=== PATIENT | male | born 1970 | race Caucasian/White ===

== ENCOUNTER 2019-11-08 12:48 | Emergency (ER) | payer MEDICARE ==
[~2019-11-08] VITALS: Ht 180.3 cm; Wt 91.6 kg
--- NOTE | 2019-11-08 12:55 | NUR ---
pt placed into esprit ventilator via trach size #8 portex with settings below per EMT transporter: AC 20 VT 550 FIO2 40% PEEP +5 BREATH SOUNDS COARSE RHONCHI BILATERAL. VENT IS PLUGGED INTO RED OUTLET WITH ALARMS ON AND FUNCTIONING. JAMESU BAG @ BEDSIDE. Addendum: 11/08/19 at 1316 by LUCÍA HOFFMAN RT Amended: Links added.
[2019-11-08] MEDS ORDERED: PIPERACILLIN /TAZOBACTAM 3.375 G in IV D5W 50 ML IV ONE (13:00)
[2019-11-08] MEDS ORDERED: VANCOMYCIN 1 GM in IV D5W 250 ML IV ONE (13:00)
[2019-11-08] MEDS ORDERED: ACETAMINOPHEN 650 MG/SUPP.RECT RC ONE ×2 (13:00→13:08)
[2019-11-08] MEDS ORDERED: IV NS 0.9% 1,000 ML BAG IV ONE (13:00)
[2019-11-08] MEDS ORDERED: PIPERACILLIN /TAZOBACTAM 3.375 G VIAL IV ONE (13:08)
[2019-11-08] MEDS ORDERED: VANCOMYCIN 1 GM VIAL ONE (13:08)
--- NOTE | 2019-11-08 13:15 | NUR ---
BIBPA FROM SNF TO ER BED 5. AAOX1, NON VERBAL ABLE TO COMMUNICATE BY GESTURES. VENT AND TRACH DEPENDENT, NOT IN RESP DISTRESS. BED BOUOND. BROUGHT IN FOR TACHYCARDIA, REPORTED AIN 130s. AND TEMP OF 103.6. TRACH SITE PRESENT WITH PORTEX 8. GT NOTED ON ABDOMEN. MD WAS AT THE BEDSIDE FOR EVAL. ORDERS RECEIVED NOTED AND CARREID OUT. IV LINE ESTABLISHED ON RFA 18G, BLOOD DRAWN AND GIVEN TO LAN ENGINEER AT BEDSIDE. RT AT BEDSIDE FOR VENT SET UP
--- NOTE | 2019-11-08 13:18 | NUR ---
VENT SETTING: AC20, VT550, O2 40%, +5 PEEP
[2019-11-08 13:19] LABS: BASOPHILS # (AUTO) 0.1 /CMM (0.0-0.2); BASOPHILS % (AUTO) 0.4 % (0.0-2.0); HEMATOCRIT 42 % (39-51); HEMOGLOBIN 12.9 g/dL (13.5-17.5); LYMPHOCYTES # (AUTO) 1.3 /CMM (0.8-4.8); LYMPHOCYTES % (AUTO) 7.4 % (20.0-44.0); MEAN CORPUSCULAR HGB CONC 31 g/dl (31.0-36.0); MEAN CORPUSCULAR VOLUME 90 fL (80-96); MONOCYTES # (AUTO) 1.2 /CMM (0.1-1.30); MONOCYTES % (AUTO) 6.5 % (2.0-12.0); NEUTROPHILS # (AUTO) 15.3 /CMM (1.8-8.9); NEUTROPHILS % (AUTO) 85.7 % (43.0-81.0); PLATELET COUNT (AUTO) 258 /CMM (150-450); RED BLOOD CELL COUNT(AUTO) 4.63 MIL/uL (4.5-6.0); WHITE BLOOD COUNT (AUTO) 17.8 K/uL (4.3-11.0)
[2019-11-08 13:25] LABS: CALCIUM, SERUM 8.6 mg/dL (8.5-10.1); CARBON DIOXIDE 32 mmol/L (21-32); CHLORIDE 112 mmol/L (98-107); GLUCOSE 208 mg/dL (74-106); POTASSIUM 3.7 mmol/L (3.5-5.1); SODIUM SERUM 153 mmol/L (136-145); UREA NITROGEN, BLOOD 41 mg/dL (7-18)
--- NOTE | 2019-11-08 13:25 | NUR ---
URINE COLLECTED VIA IN AND OUT CATH WITH STRICT STERILE TECHNIQUE. URINE SENT TO LAB
[2019-11-08] MEDS ORDERED: PHEN180S18 MM (13:29)
[2019-11-08] MEDS ORDERED: NA P133E RC (13:29)
[2019-11-08] MEDS ORDERED: IPRA12.9 IH ×2 (13:29)
[2019-11-08] MEDS ORDERED: ONDA-97 GT (13:29)
[2019-11-08] MEDS ORDERED: ACET-2605 GT (13:29)
[2019-11-08] MEDS ORDERED: MULT-439 GT (13:29)
[2019-11-08] MEDS ORDERED: OXYC5CAP18 GT (13:29)
[2019-11-08] MEDS ORDERED: MAG-55 GT (13:29)
[2019-11-08] MEDS ORDERED: ASPI-1169 GT (13:29)
[2019-11-08] MEDS ORDERED: BROM2.5T15 GT (13:29)
[2019-11-08] MEDS ORDERED: CHLO473M3 MM (13:29)
[2019-11-08] MEDS ORDERED: HEPA1DIS12 SUBCUT (13:29)
[2019-11-08] MEDS ORDERED: BISA10SU11 RC (13:29)
[2019-11-08] MEDS ORDERED: MAGN400O6 GT (13:29)
[2019-11-08] MEDS ORDERED: QUET25TA GT (13:29)
[2019-11-08] MEDS ORDERED: CRAN3875 GT (13:29)
[2019-11-08] MEDS ORDERED: ACET-868 GT (13:29)
[2019-11-08] MEDS ORDERED: LACT20SO4 GT (13:29)
[2019-11-08] MEDS ORDERED: ASCO500C16 GT (13:29)
[2019-11-08] MEDS ORDERED: LEVE100S GT (13:29)
[2019-11-08] MEDS ORDERED: AMIN887L GT (13:29)
[2019-11-08] MEDS ORDERED: LANS30CA56 GT (13:29)
[2019-11-08] MEDS ORDERED: METF500S7 GT (13:29)
[2019-11-08] MEDS ORDERED: NICO-676 TD (13:29)
[2019-11-08] MEDS ORDERED: SENN-18 GT (13:29)
[2019-11-08] MEDS ORDERED: ATOR80TA GT (13:29)
[2019-11-08] MEDS ORDERED: INSU100V28 IJ (13:29)
[2019-11-08] MEDS ORDERED: DOCU-141 GT (13:29)
[2019-11-08 13:31] LABS: ALANINE AMINOTRANSFERASE 53 U/L (12-78); ALBUMIN 2.8 g/dL (3.4-5.0); ALKALINE PHOSPHATASE 89 U/L (46-116); ASPARTATE AMINOTRANSFERASE 53 U/L (15-37); BILIRUBIN,DIRECT 0.2 mg/dL (0.0-0.2); BILIRUBIN,TOTAL 0.6 mg/dL (0.2-1.0); TOTAL PROTEIN, SERUM 8.2 g/dL (6.4-8.2)
[2019-11-08 13:50] LABS: BILIRUBIN,URINE Negative (NEGATIVE); BLOOD, URINE Large Ery/uL (NEGATIVE); COLOR,URINE Yellow (YELLOW); KETONES,URINE Negative (NEGATIVE); LEUKOCYTE ESTERASE ,URINE Negative (NEGATIVE); NITRITE, URINE Negative (NEGATIVE); PH,URINE 5.5 (5.0-8.0); PROTEIN,URINE >=300 mg/dl (NEGATIVE); UGLUCOSE Negative (NEGATIVE)
[2019-11-08 13:52] LABS: APPEARANCE,URINE SLIGHTLY HAZY (CLEAR)
[2019-11-08 14:05] LABS: BACTERIA,URINE Few /HPF (None Seen); SQUAMOUS EPITHELIAL CELL,UR Few /HPF (None Seen); URINE AMORPHOUS URATE Moderate /HPF (None Seen); WBC,URINE 0-1 /HPF (0-3)
--- NOTE | 2019-11-08 14:08 | NUR ---
CALLED NURSING SUPP FOR TELE BED.
--- NOTE | 2019-11-08 14:10 | NUR ---
MOVE SHEET SUBMITTED TO ADMITTING AND CALLED FOR TELE BED.
--- NOTE | 2019-11-08 14:41 | NUR ---
SPOKE WITH GENE, LOCOMOTIVE ELECTRICIAN FOR CLINICAL INFORMATION. WILL CALL BACK FOR ADMISSION APPROVAL
[2019-11-08] MEDS ORDERED: IOHEXOL-300 100 ML VIAL IV ONE (14:45)
[2019-11-08] MEDS ORDERED: CT SWABBABLE VALVE TRANS SET 1 EA INFUS.SET MC ONE (14:46)
[2019-11-08] MEDS ORDERED: IV NS 0.9% 250 ML IV ONE (14:46)
--- NOTE | 2019-11-08 15:09 | NUR ---
BACK FROM CT WITH RT AND RN AT BEDSIDE
--- NOTE | 2019-11-08 15:24 | NUR ---
PT GOING TO 104
--- NOTE | 2019-11-08 15:28 | NUR ---
SPOKE WITH DR. MATTHEW MD WANTS TO HAVE [facility] PAT[facility]. GIVEN 2 HOURS TO FACILITATE TRANSPFER TO ANOTHER HOPSPITAL
[2019-11-08] MEDS ORDERED: IV NS 0.9% 1,000 ML IV PRN (15:50)
[2019-11-08] MEDS ORDERED: MAGNESIUM HYDROXIDE 30 ML UDC GT PRN (16:00)
[2019-11-08] MEDS ORDERED: BISACODYL SUPP (10 MG) 10 MG/SUPP.RECT SUPP.RECT RC PRN (16:00)
[2019-11-08] MEDS ORDERED: Z GUARD REMEDY 2 OZ OINT TP PRN (16:00)
[2019-11-08] MEDS ORDERED: ONDANSETRON HCL/PF 4 MG/2 ML VIAL IVP PRN (16:00)
[2019-11-08] MEDS ORDERED: ACETAMINOPHEN 325 MG TABLET PO PRN (16:00)
[2019-11-08] MEDS ORDERED: oxyCODONE IR immediate release 5 MG GT PRN (16:00)
[2019-11-08] MEDS ORDERED: PHENOL/SODIUM PHENOLATE 1 BOTTLE MM PRN (16:00)
[2019-11-08] MEDS ORDERED: NA PHOS,M-B/NA PHOS,DI-BA 1 EA ENEMA RC PRN (16:00)
[2019-11-08] MEDS ORDERED: KETOROLAC TROMETHAMINE INJ 30 MG/ML VIAL IV ONE (16:30)
[2019-11-08] MEDS ORDERED: ACETAMINOPHEN 650 MG/20.3 ML UDC GT PRN (16:30)
--- NOTE | 2019-11-08 16:30 | NUR ---
made aware that temp is noted at 102.7, order received to give Toradol 15mg iv x 1.
[2019-11-08] MEDS ORDERED: KETOROLAC TROMETHAMINE 15 MG/ML VIAL ONE (16:31)
[2019-11-08] MEDS ORDERED: BROMOCRIPTINE MESYLATE (2.5MG) 2.5 MG TABLET GT SCH (17:00)
[2019-11-08] MEDS ORDERED: CHLORHEXIDINE GLUCONATE 15 ML UDC MM SCH (17:00)
[2019-11-08] MEDS ORDERED: DOCUSATE SODIUM 100 MG CAPSULE PO SCH (17:00)
[2019-11-08] MEDS ORDERED: LEVETIRACETAM SOL (5 ML) 100 MG/ML UDC GT SCH (17:00)
--- NOTE | 2019-11-08 17:36 | NUR ---
ADMITTED AT [facility] GOING TO 215.A REPORT TO [phone]. LESLIE
--- NOTE | 2019-11-08 17:45 | NUR ---
REPORT GIVEN TO ESSIE NELSON FOR MYRANDA AT THE [facility]
--- NOTE | 2019-11-08 17:49 | NUR ---
PT GOING TO [facility] ROOM 215-A. REPORT TO [phone] LESLIE. TRANSPORT WILL BE HERE AT 1830.
[2019-11-08 17:58] VITALS: BP 107/58
--- NOTE | 2019-11-08 18:30 | NUR ---
Yanely stuart in [facility] - 11/08/19 at 1847 by MAYITO REPORT GIVEN TO ESSIE NELSON AT THE [facility]
--- NOTE | 2019-11-08 18:51 | NUR ---
[facility] AT BEDSIDE FOR PT TRANSPORTED. REPORT GIVEN TO ESSIE ZENG (AMBULANCE TRANSPORT NURSE).
--- NOTE | 2019-11-08 19:13 | NUR ---
PT LEFT ON GURNEY WITH 2 AMBULANCE STAFF AND RN AT BEDSIDE [facility] NAD NOTED.
[2019-11-08] MEDS ORDERED: HEPARIN SODIUM, PORCINE 5000 UNITS/1 ML VIAL SQ SCH (21:00)
[2019-11-08] MEDS ORDERED: METFORMIN 500 MG TABLET PO SCH (21:00)
[2019-11-08] MEDS ORDERED: SENNOSIDES 8.6 MG TABLET GT SCH (22:00)
[2019-11-08] MEDS ORDERED: QUETIAPINE FUMARATE 25 MG TABLET GT SCH (22:00)
[2019-11-08] MEDS ORDERED: ATORVASTATIN 40 MG TABLET GT SCH (22:00)
[2019-11-09] MEDS ORDERED: PANTOPRAZOLE 40 MG TABLET.DR PO SCH (07:30)
[2019-11-09] MEDS ORDERED: PANTOPRAZOLE 40 MG/PACK PACK GT SCH (07:30)
[2019-11-09] MEDS ORDERED: NICOTINE PATCH (14MG) 14 MG PATCH.TD24 TD SCH (09:00)
[2019-11-09] MEDS ORDERED: ASPIRIN 81 MG TAB.CHEW GT SCH (09:00)
== END 2019-11-08 19:16 | disposition short-term general hospital (02) ==
LOC: ER 12:51
DX: A41.9 Sepsis, unspecified organism (principal); I21.A1 Myocardial infarction type 2; E87.1 Hypo-osmolality and hyponatremia; J96.10 Chronic respiratory failure, unspecified whether with hypoxia or hypercapnia; Z93.0 Tracheostomy status; G20 Parkinson's disease; Z99.11 Dependence on respirator [ventilator] status; G40.909 Epilepsy, unspecified, not intractable, without status epilepticus; E11.42 Type 2 diabetes mellitus with diabetic polyneuropathy; J44.9 Chronic obstructive pulmonary disease, unspecified; I69.959 Hemiplegia and hemiparesis following unspecified cerebrovascular disease affecting unspecified side; R40.2432 Glasgow coma scale score 3-8, at arrival to emergency department; I11.0 Hypertensive heart disease with heart failure; I50.9 Heart failure, unspecified; Z86.711 Personal history of pulmonary embolism; E78.5 Hyperlipidemia, unspecified; K21.9 Gastro-esophageal reflux disease without esophagitis; D64.9 Anemia, unspecified; R79.89 Other specified abnormal findings of blood chemistry; Z93.1 Gastrostomy status; R13.10 Dysphagia, unspecified; Z79.82 Long term (current) use of aspirin; Z79.84 Long term (current) use of oral hypoglycemic drugs; Z87.19 Personal history of other diseases of the digestive system; Z91.040 Latex allergy status; Z20.828 Contact with and (suspected) exposure to other viral communicable diseases
CPT/HCPCS: 36415; 70470; 71045; 80048; 80076; 81001; 83605 ×2; 84145; 84484; 85025; 85730; 87040 ×2; 87086; 87426; 93005; 96365; 96366; 96375; 99291; J1885; J1953; J2543 ×2; J3370; J7030; J7050; J7060; Q9967; 81000-TC; C9803-CS; U0003-CS

== ENCOUNTER 2019-12-17 23:41 | Inpatient (IN) | payer OTHER ==
[~2019-12-17] VITALS: Ht 180.3 cm; Wt 89.8 kg
[~2019-12-17 23:41] MED LIST: ACET-2605 GT; ACET-868 GT; AMIN887L GT; ASCO500C16 GT; ASPI-1169 GT; ATOR80TA GT; BISA10SU11 RC; BROM2.5T15 GT; CHLO473M3 MM; CRAN3875 GT; DOCU-141 GT; HEPA1DIS12 SUBCUT; INSU100V28 IJ; IPRA12.9 IH; LACT20SO4 GT; LANS30CA56 GT; LEVE100S GT; MAG-55 GT; MAGN400O6 GT; METF500S7 GT; MULT-439 GT; NA P133E RC; NICO-676 TD; ONDA-97 GT; OXYC5CAP18 GT; PHEN180S18 MM; QUET25TA GT; SENN-18 GT
--- NOTE | 2019-12-17 23:45 | NUR ---
PT JOSE FROM [facility] C/O MIDSTERNAL CHEST PAIN X 3 HOURS AGO. PT DESCRIBES IT CONSTANT AND SHARP PAIN. PT AAOX4, VSS, RESPIRATIONS EVEN AND UNLABORED W/ NAD NOTED. PT CONNECTED TO THE MANAGER ACQUISITION AND POX
[2019-12-18] MEDS ORDERED: MORPHINE SULFATE INJ 2 MG/ML DISP.SYRIN IV ONE
[2019-12-18] MEDS ORDERED: ASPIRIN 325 MG TABLET PO ONE
[2019-12-18 00:07] LABS: BASOPHILS % (AUTO) 0.6 % (0.0-2.0); EOSINOPHILS % (AUTO) 1.2 % (0.0-6.0); HEMATOCRIT 37 % (39-51); HEMOGLOBIN 12.2 g/dL (13.5-17.5); LYMPHOCYTES # (AUTO) 2.6 /CMM (0.8-4.8); LYMPHOCYTES % (AUTO) 31.3 % (20.0-44.0); MEAN CORPUSCULAR HGB CONC 33 g/dl (31.0-36.0); MEAN CORPUSCULAR VOLUME 89 fL (80-96); MONOCYTES # (AUTO) 0.6 /CMM (0.1-1.30); MONOCYTES % (AUTO) 7.3 % (2.0-12.0); NEUTROPHILS # (AUTO) 4.9 /CMM (1.8-8.9); NEUTROPHILS % (AUTO) 59.6 % (43.0-81.0); PLATELET COUNT (AUTO) 257 /CMM (150-450); WHITE BLOOD COUNT (AUTO) 8.3 K/uL (4.3-11.0)
--- NOTE | 2019-12-18 00:10 | NUR ---
BLOOD COLLECTED AND SENT TO LAB
[2019-12-18] MEDS ORDERED: MORPHINE SULFATE INJ 2 MG/ML DISP.SYRIN ONE (00:11)
[2019-12-18] MEDS ORDERED: ASPIRIN 325 MG TABLET ONE (00:11)
--- NOTE | 2019-12-18 00:23 | NUR ---
JOVON COLLECTED AND SENT TO LAB
--- NOTE | 2019-12-18 00:25 | NUR ---
VENT SETTINGS: RATE:10 TV:500 PEEP: 5
--- NOTE | 2019-12-18 00:40 | NUR ---
Pt placed on hospital vent with noted setting provided by transport. pt tolerating setting well. no sob or distress noted. Vent to red outlet. Alarms set and audible. Continue current care plan and monitor for any changes. Addendum: 12/18/19 at 0044 by JAZZ MARTINEZ RT Amended: Links added.
[2019-12-18 01:23] LABS: CALCIUM, SERUM 9.2 mg/dL (8.5-10.1); CARBON DIOXIDE 29 mmol/L (21-32); CHLORIDE 101 mmol/L (98-107); CREATININE 0.7 mg/dL (0.6-1.3); GLUCOSE 86 mg/dL (74-106); POTASSIUM 4.6 mmol/L (3.5-5.1); SODIUM SERUM 138 mmol/L (136-145); UREA NITROGEN, BLOOD 17 mg/dL (7-18)
[2019-12-18 01:36] LABS: ALANINE AMINOTRANSFERASE 26 U/L (12-78); ALBUMIN 2.6 g/dL (3.4-5.0); ALKALINE PHOSPHATASE 94 U/L (46-116); ASPARTATE AMINOTRANSFERASE 30 U/L (15-37); B-TYPE NATRIURETIC PEPTIDE 753 PG/ML (0-125); BILIRUBIN,DIRECT 0.1 mg/dL (0.0-0.2); BILIRUBIN,TOTAL 0.2 mg/dL (0.2-1.0); TOTAL PROTEIN, SERUM 6.9 g/dL (6.4-8.2)
[2019-12-18] MEDS ORDERED: NITROGLYCERIN 0.4 MG/TAB BOTTLE ONE (02:44)
--- NOTE | 2019-12-18 02:56 | NUR ---
PT RELIEVED WITH 1 TAB OF NITRO SL. AWARE. PT DENIES CHEST PAIN AT THIS TIME
[2019-12-18] MEDS ORDERED: NITROGLYCERIN 0.4 MG/TAB BOTTLE SL ONE (03:00)
[2019-12-18] MEDS ORDERED: INSU100V7 SQ (04:02)
[2019-12-18] MEDS ORDERED: SPIR25TA6 GT (04:02)
[2019-12-18] MEDS ORDERED: LISI2.5T2 GT (04:02)
[2019-12-18] MEDS ORDERED: APIX5TAB GT (04:02)
[2019-12-18] MEDS ORDERED: METO50TA16 GT (04:02)
[2019-12-18] MEDS ORDERED: DIGO125T GT (04:02)
[2019-12-18] MEDS ORDERED: AMIO100T4 GT (04:02)
--- NOTE | 2019-12-18 04:04 | NUR ---
REPORT GIVEN TO ESSIE GARCIA FOR MYRANDA
--- NOTE | 2019-12-18 04:06 | NUR ---
Received report from ESSIE Cruz for MYRANDA.
--- NOTE | 2019-12-18 04:26 | NUR ---
PT TRANSFERRED TO ROOM IN STABLE CONDITION VIA ACLS PROTOCOL
[2019-12-18] MEDS ORDERED: DEXTROSE 50%-WATER 50 ML DISP.SYRIN IV PRN ×3 (04:30→05:30)
--- NOTE | 2019-12-18 04:30 | NUR ---
RUBBER BELT SPLICER NOTE: Pt transferred to unit via gurney accompanied by RN, EMT and RT. Admit dx: Chest pain. Transferred to bed. Pt A&Ox4, on trach and mechanical ventilation Portex #8, SIMV 10, TV 500, FiO2 40%, PEEP 5. Tolerating settings well. No SOB or resp distress noted at this time. Breathing even and unlabored at this time. Pt able to mouth words when asked questions. SB w/ PVC's on tele monitor. Bed bath given, skin check done. No wounds noted. Pt currently NPO. GT site noted, clamped. Right hand #18 patent and flushed. Dressing c/d/i. VSS. VS T:98.3, HR:68, RR:18, O2:100%, BP:140/93, Denies chest pain at this time. Oriented to room and call light. Safety measures in place. Will continue to monitor.
[2019-12-18 04:51] VITALS: BP 140/93
--- NOTE | 2019-12-18 05:00 | NUR ---
RT Pt received trached on mechanical ventilation with noted settings. Vent alarms are set and audible with BVM and spare trach by bedside. No SOB or respiratory distress noted. Addendum: 12/18/19 at 0533 by SHELIA MILLS RT Amended: Links added.
[2019-12-18] MEDS ORDERED: INSULIN REGULAR, HUMAN 100 UNIT/ML 3 ML VIAL SQ PRN (05:30)
[2019-12-18] MEDS ORDERED: BLOOD SUGAR DIAGNOSTIC 1 EACH STRIP IN SCH ×2 (06:00)
[2019-12-18] MEDS: BLOOD SUGAR DIAGNOSTIC 1 EACH STRIP IN SCH ×3 (06:06→17:50)
--- NOTE | 2019-12-18 06:54 | NUR ---
RN CLOSING NOTES: Pt resting in bed, on trach/mech ventilation. No acute changes noted. No SOB or resp distress noted. Sb w/ PVC's on tele monitor. NPO dx. Right hand #18 patent and flushed. Dressing c/d/i. Safety measures in place. Will endorse to oncoming nurse for MYRANDA.
[2019-12-18 07:01] LABS: CALCIUM, SERUM 9.1 mg/dL (8.5-10.1); CARBON DIOXIDE 31 mmol/L (21-32); CHLORIDE 98 mmol/L (98-107); CREATININE 0.6 mg/dL (0.6-1.3); GLUCOSE 77 mg/dL (74-106); POTASSIUM 3.9 mmol/L (3.5-5.1); SODIUM SERUM 133 mmol/L (136-145); UREA NITROGEN, BLOOD 17 mg/dL (7-18)
[2019-12-18 07:04] LABS: BASOPHILS % (AUTO) 0.3 % (0.0-2.0); HEMATOCRIT 37 % (39-51); HEMOGLOBIN 12.1 g/dL (13.5-17.5); LYMPHOCYTES # (AUTO) 2.1 /CMM (0.8-4.8); LYMPHOCYTES % (AUTO) 28.8 % (20.0-44.0); MEAN CORPUSCULAR HGB CONC 33 g/dl (31.0-36.0); MEAN CORPUSCULAR VOLUME 88 fL (80-96); MONOCYTES # (AUTO) 0.5 /CMM (0.1-1.30); MONOCYTES % (AUTO) 6.4 % (2.0-12.0); NEUTROPHILS # (AUTO) 4.6 /CMM (1.8-8.9); NEUTROPHILS % (AUTO) 63.5 % (43.0-81.0); PLATELET COUNT (AUTO) 257 /CMM (150-450); RED BLOOD CELL COUNT(AUTO) 4.23 MIL/uL (4.5-6.0); WHITE BLOOD COUNT (AUTO) 7.2 K/uL (4.3-11.0)
[2019-12-18 07:11] LABS: CHOLESTEROL 87 mg/dL (<200); HDL CHOLESTEROL 38 mg/dL (40-60); LDL 38 mg/dL (0-99); TRIGLYCERIDES 116 mg/dL (30-150)
--- NOTE | 2019-12-18 07:20 | NUR ---
RN OPENING NOTE: Received patient in bed. Awake, alert and oriented x4. With trach tube in place and mechanically ventilated at prescribed settings being tolerated well. No SOB and not in respiratory distress. Able to make needs known by mouthing words. Denies chest pain. IV site clean, dry, patent and intact. Allergy to latex, natural rubber, adhesive tape noted. IV site clean, dry, patent and intact. Gtube patent and in place.Call light in reach. Bed locked low and at semi-dickson's position. Side rails up x3. Safety ensured and observed. Will continue to monitor.
[2019-12-18] MEDS ORDERED: BISACODYL SUPP (10 MG) 10 MG/SUPP.RECT SUPP.RECT RC PRN (08:00)
[2019-12-18] MEDS ORDERED: ONDANSETRON 4 MG TAB.RAPDIS GT PRN (08:00)
[2019-12-18] MEDS ORDERED: MAGNESIUM HYDROXIDE 30 ML UDC GT PRN (08:00)
[2019-12-18] MEDS ORDERED: MAG HYDROX/AL HYDROX/SIMETH 30 ML UDC GT PRN (08:00)
[2019-12-18] MEDS ORDERED: IPRATROPIUM NEB FS 0.5 MG/2.5 ML AMPUL.NEB NEB PRN (08:00)
[2019-12-18] MEDS ORDERED: NA PHOS,M-B/NA PHOS,DI-BA 1 EA ENEMA RC PRN (08:00)
[2019-12-18] MEDS ORDERED: MISCELLANEOUS MED 1 EA EA GT PRN (08:00)
[2019-12-18] MEDS ORDERED: ACETAMINOPHEN 325 MG TABLET PO PRN (08:00)
[2019-12-18] MEDS: CHLORHEXIDINE GLUCONATE 15 ML UDC MM SCH ×2 (08:51→16:27)
[2019-12-18] MEDS: BROMOCRIPTINE MESYLATE (2.5MG) 2.5 MG TABLET GT SCH ×3 (08:52→16:27)
[2019-12-18] MEDS: AMIODARONE HCL 200 MG TABLET GT SCH ×2 (08:52→17:00)
[2019-12-18] MEDS: METOPROLOL TARTRATE 50 MG TABLET GT SCH ×2 (08:52→17:00)
[2019-12-18] MEDS: DOCUSATE SODIUM LIQ 100 MG/10 ML UDC GT SCH ×2 (08:52→16:27)
[2019-12-18] MEDS: oxyCODONE IR immediate release 5 MG GT PRN ×2 (08:53→17:35)
[2019-12-18] MEDS: APIXABAN 5 MG TABLET GT SCH ×2 (08:54→16:28)
[2019-12-18] MEDS ORDERED: LISINOPRIL (5MG) 5 MG TABLET GT SCH (09:00)
[2019-12-18] MEDS ORDERED: INSULIN GLARGINE, 100 UNIT/ML CARTRIDGE SQ SCH (09:00)
[2019-12-18] MEDS ORDERED: ASPIRIN 81 MG TAB.CHEW GT SCH (09:00)
[2019-12-18] MEDS ORDERED: SPIRONOLACTONE 25 MG TABLET GT SCH (09:00)
[2019-12-18] MEDS ORDERED: DOCUSATE SODIUM 100 MG CAPSULE PO SCH (09:00)
[2019-12-18] MEDS ORDERED: PANTOPRAZOLE 40 MG/PACK PACK GT SCH ×2 (09:00)
[2019-12-18 09:37] VITALS: BP 119/65
[2019-12-18 10:17] LABS: MAGNESIUM 2.2 mg/dL (1.8-2.4); PHOSPHORUS 4.2 mg/dL (2.5-4.9)
[2019-12-18] MEDS ORDERED: HYDROMORPHONE 1 MG/1 ML DISP.SYRIN IV ONE (10:30)
[2019-12-18 10:33] LABS: THYROID STIMULATING HORMONE 5.398 uIU/mL (0.358-3.74)
--- NOTE | 2019-12-18 10:34 | NUR ---
UNABLE TO PLACED G18 AC FOR CTA PROCEDURE,TRIED 3X PER DR. WILLIE BARRIENTOS MIDLINE AND DISCHARGE PATIENT ONCE NEGATIVE CTA,CM MADE AWARE,PER NURSING SUP NO TIME YET FOR CTA. BUT CONFIRMED MIDLINE NURSE COMING BY 3PM.
[2019-12-18 12:00] VITALS: BP 119/61
[2019-12-18] MEDS ORDERED: DIGOXIN 0.125 MG TABLET GT SCH (13:00)
[2019-12-18] MEDS ORDERED: IPRATROPIUM NEB FS 0.5 MG/2.5 ML AMPUL.NEB NEB SCH (13:30)
[2019-12-18 16:00] VITALS: BP 119/61
[2019-12-18] MEDS ORDERED: GLUCERNA 1.2 1,000 ML BOTTLE GT PRN (16:00)
[2019-12-18] MEDS ORDERED: IOHEXOL-350 100 ML VIAL IV ONE (16:30)
[2019-12-18] MEDS ORDERED: IV NS 0.9% 250 ML IV ONE (16:30)
[2019-12-18] MEDS ORDERED: CT SWABBABLE VALVE TRANS SET 1 EA INFUS.SET MC ONE (16:30)
[2019-12-18] MEDS ORDERED: NITROGLYCERIN 4.9 GM SPRAY ONE (16:57)
--- NOTE | 2019-12-18 18:16 | NUR ---
FOLLOW UP CTA RESULT STILL PENDING,WILL ENDORSED TO NIGHT RN,PER BLACKENER PATIENT ON WILL CALL WITH [facility] [phone],AND GOING TO [facility] [phone].WILL ENDORSED TO NIGHT RN/CHARGE FOR CONTINUITY OF DISCHARGE PROCESS.
--- NOTE | 2019-12-18 18:55 | NUR ---
RN CLOSING NOTE: Patient in bed. Awake, alert and oriented x4. With trach tube in place and mechanically ventilated at prescribed settings being tolerated well. No SOB and not in respiratory distress. Able to make needs known by mouthing words. Denies chest pain. IV site clean, dry, IV site clean, dry, patent and intact. Gtube patent and in place.Call light in reach. Seen by Dr. Lancaster earlier on shift with DC order in place if CTA is resulted negative, awaiting results Bed locked low and at semi-dickson's position. Side rails up x3. Safety ensured and observed. Medications given. Treatment given as ordered. Will endorse to oncoming shift for MYRANDA.
--- NOTE | 2019-12-18 19:08 | NUR ---
spoke with radiology cta will be available in am,dr. andersen made aware and wanted dr. richardson to be notified coz if negative pt. ok back to subacute.
--- NOTE | 2019-12-18 19:16 | NUR ---
per DR. Hernandez need to wait for result.
--- NOTE | 2019-12-18 19:36 | NUR ---
RN NOTES INFORM DR TAPIA THATS PER DR. DC WE NEED TO WAIT THE RESULT FOR CTA BEFORE WE DISCHARGE THE PT. DR. TAPIA AGREE WITH DR. DC PLAN
[2019-12-18 20:00] VITALS: BP 123/61
--- NOTE | 2019-12-18 20:40 | NUR ---
RN NOTES CTA RESULT WAS RELEASED BY THE RADIOLOGY DEPARTMENT RELAYED TO DR. TAPIA AND DR. DC WITH OKAY TO D/C THE PATIENT BACK TO SNF, CHARGE NURSE MADE AWARE, DISCHARGE PROCEDURE STARTED,WILL CONT TO MONITOR THE PT
--- NOTE | 2019-12-18 21:00 | NUR ---
Spoke to beto employment case manager re transport said to call after hour employment case manager regal to activate the transport.paged for case manger information resource consultant awaiting for reply.
--- NOTE | 2019-12-18 21:19 | NUR ---
Received a call from [employer] labor relations representative case finishing machine adjuster , she said she will activate the transport and she will call me back
--- NOTE | 2019-12-18 21:43 | NUR ---
Recieved a call from [employer] sample case porter eta for transport from [facility] ambulance is 1am
[2019-12-18] MEDS ORDERED: ATORVASTATIN 40 MG TABLET GT SCH (22:00)
[2019-12-18] MEDS ORDERED: SENNOSIDES 8.6 MG TABLET GT SCH (22:00)
[2019-12-18] MEDS ORDERED: QUETIAPINE FUMARATE 25 MG TABLET GT SCH (22:00)
--- NOTE | 2019-12-18 22:01 | NUR ---
RN NOTES CONFIRMED HEAD SAMPLER OF THE PT IS 1AM PER [facility], DR. TAPIA MADE AWARE, GIVE REPORT TO [facility] AND TALK TO MS ZACK FOUNTAIN, THEY ARE AWARE THAT THE PT HEAD SAMPLER TIME IS 1 AM
--- NOTE | 2019-12-18 22:09 | NUR ---
RN NOTES GIVE REPORT TO [facility] AND TALK TO MR ZACK FOUNTAIN, DISCHARGE REPORT GIVEN, AND INFORM THEM THAT THE BERRY PICKER TIME IS 1AM BY [facility], PT SON ALSO WAS INFORMED ABOUT THE DISCHARGE
[2019-12-19] VITALS: BP 134/70
--- NOTE | 2019-12-19 00:05 | NUR ---
POLICE INVESTIGATOR NOTES EMT FROM [facility] CAME TO PLATINUM AND PALLADIUM KETTLE TENDER PT, LATEST V/S 134/70 HR 66 RR 18 TEMP 98.3 SPO2 98% PT IS AWAKE A/O X 4 TELE MONITOR READS SINUS RHYTHM 60'S, SADA MIDLINE REMOVE NO BLEEDING NOTED PRESSURE DRESSING WAS APPLIED, PARTIAL BED BATH AND DIAPER CHANGE DONE, DISCONNECT TO TUBE FEEDING FLUSHED AND CLAMPED, RT ON BED SIDE TO SET UP PT, SAFELY TRANSFER FROM BED TO [facility] BY EMT, PT DONT HAVE ANY BELONGINGS FROM ADMISSION, PT ON HIS WAY TO [facility]
[2019-12-19] MEDS: BLOOD SUGAR DIAGNOSTIC 1 EACH STRIP IN SCH (00:39)
== END 2019-12-19 | DRG 313 ==
LOC: ER 23:44 → TELE1 12-18 03:57
PROVIDERS: ADMIT Internal Medicine; ATTEND Internal Medicine
PROC: 5A1935Z Respiratory Ventilation, Less than 24 Consecutive Hours (ICD-10-PCS; principal; 2019-12-18)
PROC: 05HY33Z Insertion of Infusion Device into Upper Vein, Percutaneous Approach (ICD-10-PCS; 2019-12-18)
DX: R07.89 Other chest pain (principal); J96.10 Chronic respiratory failure, unspecified whether with hypoxia or hypercapnia; G81.91 Hemiplegia, unspecified affecting right dominant side; Z99.11 Dependence on respirator [ventilator] status; K86.1 Other chronic pancreatitis; I50.9 Heart failure, unspecified; I11.0 Hypertensive heart disease with heart failure; I25.2 Old myocardial infarction; G93.89 Other specified disorders of brain; E78.5 Hyperlipidemia, unspecified; G40.909 Epilepsy, unspecified, not intractable, without status epilepticus; Z91.040 Latex allergy status; Z91.048 Other nonmedicinal substance allergy status; R13.10 Dysphagia, unspecified; Z93.0 Tracheostomy status; Z93.1 Gastrostomy status; Z79.4 Long term (current) use of insulin; Z79.82 Long term (current) use of aspirin; Z79.51 Long term (current) use of inhaled steroids; G20 Parkinson's disease; E11.9 Type 2 diabetes mellitus without complications; D64.9 Anemia, unspecified; J44.9 Chronic obstructive pulmonary disease, unspecified; Z89.422 Acquired absence of other left toe(s); Z79.899 Other long term (current) drug therapy; Z79.01 Long term (current) use of anticoagulants
CPT/HCPCS: 31720; 36415; 71045-TC; 75574; 80048-TC; 80061-TC; 80076-TC; 80162-TC; 82728-TC; 82962-TC; 83540-TC; 83735-TC; 83880; 84100-TC; 84439-TC; 84443-TC; 84484-TC; 85025-TC; 87081-TC; 93307-TC; 94002-TC; 94003-TC; 94760-TC; 99082-TC; C9803; G0378; J1170; J1815; J2270; J7050; Q9967

== ENCOUNTER 2020-05-07 14:59 | Inpatient (IN) | payer MEDICARE, OTHER ==
[~2020-05-07] VITALS: Ht 180.3 cm; Wt 80.7 kg
[~2020-05-07 14:59] MED LIST changes: -ACET-2605 GT; -AMIN887L GT; +AMIO100T4 GT; +APIX5TAB GT; -ASCO500C16 GT; +ASCO500C17 GT; +DIGO125T GT; -HEPA1DIS12 SUBCUT; +INSU100V7 SQ; -LACT20SO4 GT; -LEVE100S GT; +LISI2.5T2 GT; +METO50TA16 GT; -NICO-676 TD; -PHEN180S18 MM; +SPIR25TA6 GT
--- NOTE | 2020-05-07 15:27 | NUR ---
JESSICA FROM [facility] C/O ABDOMINAL PAIN ON THE G TUBE AREA X 1 DAY. PT AAOX4, VSS. RR EVEN & UNLABORED. DENIES CP, SOB, DIZZINESS, N/V/D AT THIS TIME. WILL CONT TO MONITOR.
[2020-05-07 15:32] LABS: BASOPHILS # (AUTO) 0.1 /CMM (0.0-0.2); BASOPHILS % (AUTO) 0.6 % (0.0-2.0); EOSINOPHILS % (AUTO) 1.2 % (0.0-6.0); HEMATOCRIT 37 % (39-51); HEMOGLOBIN 12.1 g/dL (13.5-17.5); LYMPHOCYTES # (AUTO) 1.8 /CMM (0.8-4.8); LYMPHOCYTES % (AUTO) 19.5 % (20.0-44.0); MEAN CORPUSCULAR HGB CONC 33 g/dl (31.0-36.0); MEAN CORPUSCULAR VOLUME 90 fL (80-96); MONOCYTES # (AUTO) 0.7 /CMM (0.1-1.30); MONOCYTES % (AUTO) 7.2 % (2.0-12.0); NEUTROPHILS # (AUTO) 6.6 /CMM (1.8-8.9); NEUTROPHILS % (AUTO) 71.5 % (43.0-81.0); PLATELET COUNT (AUTO) 254 /CMM (150-450); RED BLOOD CELL COUNT(AUTO) 4.13 MIL/uL (4.5-6.0); WHITE BLOOD COUNT (AUTO) 9.2 K/uL (4.3-11.0)
[2020-05-07 15:47] LABS: CREATININE 0.8 mg/dL (0.6-1.3); POTASSIUM 4.3 mmol/L (3.5-5.1)
[2020-05-07] MEDS ORDERED: MAGN400T26 GT (15:58)
[2020-05-07] MEDS ORDERED: OMEP20CA15 GT (15:58)
[2020-05-07] MEDS ORDERED: SACC250C GT (15:58)
[2020-05-07] MEDS ORDERED: INSU100V27 SQ (15:58)
[2020-05-07] MEDS ORDERED: OMEG1CAP GT (15:58)
[2020-05-07] MEDS ORDERED: AMIN30LI2 GT (15:58)
[2020-05-07] MEDS ORDERED: LEVE500T9 GT (15:58)
[2020-05-07] MEDS ORDERED: NICO-676 TD (15:58)
[2020-05-07] MEDS ORDERED: ACET-2605 GT (15:58)
[2020-05-07] MEDS ORDERED: [UNRECOGNIZED DRUG - CODE] IM (15:58)
[2020-05-07] MEDS ORDERED: HEPA50007 SQ (15:58)
[2020-05-07] MEDS ORDERED: ASCO500T10 GT (15:58)
[2020-05-07] MEDS ORDERED: NUT.237L31 GT (15:58)
[2020-05-07] MEDS ORDERED: CHLO118L6 TP (15:58)
[2020-05-07 16:10] LABS: ALBUMIN 2.8 g/dL (3.4-5.0); BILIRUBIN,DIRECT 0.1 mg/dL (0.0-0.2); BILIRUBIN,TOTAL 0.2 mg/dL (0.2-1.0); TOTAL PROTEIN, SERUM 7.5 g/dL (6.4-8.2)
[2020-05-07] MEDS ORDERED: PIPERACILLIN /TAZOBACTAM 3.375 G in IV D5W 50 ML IV ONE (17:00)
--- NOTE | 2020-05-07 17:15 | NUR ---
ROOM GIVEN 108
--- NOTE | 2020-05-07 17:38 | NUR ---
REPORT GIVEN TO LALY FOUNTAIN FOR MYRANDA
--- NOTE | 2020-05-07 17:47 | NUR ---
Patient admitt to room 108 recieved report by Keo QURESHI
[2020-05-07] MEDS ORDERED: Z GUARD REMEDY 2 OZ OINT TP PRN (18:00)
[2020-05-07] MEDS ORDERED: MAGNESIUM HYDROXIDE 30 ML UDC PO PRN (18:00)
[2020-05-07] MEDS ORDERED: HYDROCODONE/APAP 5/325MG TABLET GT PRN (18:00)
[2020-05-07] MEDS ORDERED: Medication Not On Formulary EA (Mag Hydrox/Al Hydrox/Simeth (Maalox Maximum Strength Sus GT PRN (18:00)
[2020-05-07] MEDS: LACTULOSE 10 G/15 ML UDC (PYXIS) GT SCH (18:00)
[2020-05-07] MEDS ORDERED: *INSULIN REGULAR(HUMULIN R)HUM 100 UNIT/ML VIAL SQ PRN (18:00)
[2020-05-07] MEDS ORDERED: HYDROCODONE/APAP 5/325MG TABLET PO PRN (18:00)
[2020-05-07] MEDS ORDERED: Medication Not On Formulary EA (Ondansetron Hcl 4 MG) GT PRN (18:00)
[2020-05-07] MEDS ORDERED: ACETAMINOPHEN 325 MG TABLET MC PRN (18:00)
[2020-05-07] MEDS ORDERED: GLUCERNA 1.5 1,000 ML BOTTLE GT SCH (18:00)
[2020-05-07] MEDS ORDERED: IPRATROPIUM NEB FS 0.5 MG/2.5 ML AMPUL.NEB NEB PRN (18:00)
[2020-05-07] MEDS ORDERED: MAG HYDROX/AL HYDROX/SIMETH 30 ML UDC PO PRN (18:00)
[2020-05-07] MEDS ORDERED: BISACODYL SUPP (10 MG) 10 MG/SUPP.RECT SUPP.RECT RC PRN (18:00)
[2020-05-07] MEDS ORDERED: INSULIN REGULAR, HUMAN 100 UNIT/ML 3 ML VIAL SQ PRN (18:00)
[2020-05-07] MEDS ORDERED: MAGNESIUM HYDROXIDE 30 ML UDC GT PRN (18:00)
[2020-05-07] MEDS ORDERED: DEXTROSE 50%-WATER 50 ML DISP.SYRIN IV PRN (18:00)
[2020-05-07] MEDS ORDERED: ACETAMINOPHEN 325 MG TABLET PO PRN (18:00)
[2020-05-07] MEDS ORDERED: NA PHOS,M-B/NA PHOS,DI-BA 1 EA ENEMA RC PRN (18:00)
[2020-05-07] MEDS ORDERED: MISCELLANEOUS MED 1 EA EA GT PRN (18:00)
--- NOTE | 2020-05-07 18:51 | NUR ---
Patient admitted from ER admit Dx is G tube site cellulitis, skin is intact, normal range vital sign. Patient refused lactose and pain medications due to painful g tube site. Will continue to monitor.
[2020-05-07 18:55] VITALS: BP 124/80
[2020-05-07] MEDS: IPRATROPIUM NEB FS 0.5 MG/2.5 ML AMPUL.NEB NEB SCH (19:30)
[2020-05-07] MEDS: oxyCODONE IR immediate release 5 MG GT PRN (19:58)
[2020-05-07 20:00] VITALS: BP 116/76
--- NOTE | 2020-05-07 20:00 | NUR ---
RN NOTE RECEIVED PT IN BED A/A/O X3, PT IS ON 3 L VIA T PIECE SATING 99%. PT HAS UNLABORED BREATHING. SAFETY MEASURES IN PLACE
[2020-05-07] MEDS: SENNOSIDES 8.6 MG TABLET GT SCH (21:22)
[2020-05-07] MEDS: ATORVASTATIN 40 MG TABLET GT SCH (21:22)
[2020-05-07] MEDS ORDERED: VANCOMYCIN 1 GM VIAL ONE (21:25)
[2020-05-07] MEDS: LEVETIRACETAM SOL (5 ML) 100 MG/ML UDC GT SCH (21:26)
[2020-05-07] MEDS: HEPARIN SODIUM, PORCINE 5000 UNITS/1 ML VIAL SQ SCH (21:28)
[2020-05-07] MEDS: VANCOMYCIN 1.25 GM in IV D5W 250 ML IV SCH (21:28)
[2020-05-07] MEDS: QUETIAPINE FUMARATE 25 MG TABLET GT SCH (22:29)
[2020-05-07] MEDS: INSULIN GLARGINE, 100 UNIT/ML CARTRIDGE SQ SCH (22:42)
[2020-05-07] MEDS: BLOOD SUGAR DIAGNOSTIC 1 EACH STRIP VI SCH (22:45)
[2020-05-08] MEDS: IPRATROPIUM NEB FS 0.5 MG/2.5 ML AMPUL.NEB NEB SCH ×4 (01:21→19:30)
--- NOTE | 2020-05-08 01:27 | NUR ---
VANCOMYCIN WAS NOT ABLE TO FIND VANCOMYCIN 1.25 GM , LATER FOUND IN OTHER PT'S CASSETTE. WAS MISPLACED.
[2020-05-08 04:00] VITALS: BP 107/66
[2020-05-08] MEDS: VANCOMYCIN 1.25 GM in IV D5W 250 ML IV SCH ×3 (04:55→20:00)
[2020-05-08 05:54] LABS: BASOPHILS # (AUTO) 0.1 /CMM (0.0-0.2); BASOPHILS % (AUTO) 0.7 % (0.0-2.0); EOSINOPHILS % (AUTO) 1.5 % (0.0-6.0); HEMATOCRIT 35 % (39-51); HEMOGLOBIN 11.6 g/dL (13.5-17.5); LYMPHOCYTES # (AUTO) 2.3 /CMM (0.8-4.8); MEAN CORPUSCULAR HGB CONC 33 g/dl (31.0-36.0); MEAN CORPUSCULAR VOLUME 90 fL (80-96); MONOCYTES # (AUTO) 0.7 /CMM (0.1-1.30); MONOCYTES % (AUTO) 7.6 % (2.0-12.0); NEUTROPHILS # (AUTO) 5.8 /CMM (1.8-8.9); NEUTROPHILS % (AUTO) 64.2 % (43.0-81.0); PLATELET COUNT (AUTO) 236 /CMM (150-450); RED BLOOD CELL COUNT(AUTO) 3.92 MIL/uL (4.5-6.0)
[2020-05-08 07:16] LABS: CALCIUM, SERUM 8.9 mg/dL (8.5-10.1); CREATININE 0.7 mg/dL (0.6-1.3); MAGNESIUM 2.2 mg/dL (1.8-2.4); PHOSPHORUS 4.2 mg/dL (2.5-4.9); POTASSIUM 4.1 mmol/L (3.5-5.1)
--- NOTE | 2020-05-08 07:28 | NUR ---
RN NOTE PT REMAINED STABLE DURING MY SHIFT , REPORT GIVEN TO ONCOMING SHIFT FOR MYRANDA.
[2020-05-08] MEDS: BLOOD SUGAR DIAGNOSTIC 1 EACH STRIP VI SCH ×4 (07:46→21:41)
--- NOTE | 2020-05-08 07:48 | NUR ---
RN OPENING NOTE PATIENT IS IN BED WITH HOB AT SEMI FOWLERS POSITION. CURRENTLY ON 3L VIA T PIECE WITH NO SIGNS OF LABORED BREATHING. PATIENT IS AOX3. SKIN IS INTACT WITH SOME GTUBE SITE REDNESS. RFA #20 IS PATENT AND INTACT. BED IS LOCKED IN THE LOWEST POSITION, 3 GUARD RAILS RAISED, CALL ALDRIDGE WITHIN REACH, AND ALL HOSPITAL SAFETY PRECAUTIONS ARE BEING FOLLOWED. WILL CONTINUE TO MONITOR THROUGHOUT SHIFT.
[2020-05-08] MEDS ORDERED: VANCOMYCIN 1 GM in IV D5W 250 ML IV SCH (08:00)
[2020-05-08] MEDS ORDERED: Medication Not On Formulary EA (Omega-3 Fatty Acids/Fish Oil (Fish Oil 1,000 Mg Capsule) GT SCH (09:00)
[2020-05-08] MEDS ORDERED: OMEPRAZOLE 20 MG CAPSULE.DR GT SCH (09:00)
[2020-05-08] MEDS ORDERED: DOCUSATE SODIUM 100 MG CAPSULE PO SCH (09:00)
[2020-05-08] MEDS ORDERED: FIXODENT DENTURE ADHESIVE TUBE MM SCH (09:00)
[2020-05-08] MEDS: LEVETIRACETAM SOL (5 ML) 100 MG/ML UDC GT SCH ×2 (09:03→21:39)
[2020-05-08] MEDS: METFORMIN 500 MG TABLET GT SCH ×2 (09:03→17:24)
[2020-05-08] MEDS: ASPIRIN 81 MG TAB.CHEW GT SCH (09:03)
[2020-05-08] MEDS: ASCORBIC ACID 500 MG TABLET GT SCH (09:04)
[2020-05-08] MEDS: PANTOPRAZOLE 40 MG/PACK PACK GT SCH (09:04)
[2020-05-08] MEDS: LACTULOSE 10 G/15 ML UDC (PYXIS) GT SCH (09:04)
[2020-05-08] MEDS: NICOTINE PATCH (14MG) 14 MG PATCH.TD24 TD SCH (09:04)
[2020-05-08] MEDS: ACIDOPHILUS/BULGARICUS 1 EACH TAB.CHEW GT SCH (09:05)
[2020-05-08] MEDS: HEPARIN SODIUM, PORCINE 5000 UNITS/1 ML VIAL SQ SCH ×2 (09:10→21:40)
[2020-05-08] MEDS: INSULIN GLARGINE, 100 UNIT/ML CARTRIDGE SQ SCH ×2 (09:15→22:00)
[2020-05-08] MEDS: MAGNESIUM OXIDE 400 MG TABLET GT SCH (09:16)
[2020-05-08] MEDS: MULTIVIT W/MINERALS 1 TAB TABLET GT SCH (09:16)
--- NOTE | 2020-05-08 09:28 | NUR ---
RT HHN tx not given at this time due to his pending COVID PCR results, no SOB or respiratory distress noted.
[2020-05-08] MEDS: METOPROLOL TARTRATE 50 MG TABLET GT SCH ×2 (09:31→17:24)
[2020-05-08] MEDS: SPIRONOLACTONE 25 MG TABLET GT SCH (09:31)
[2020-05-08] MEDS: AMIODARONE HCL 200 MG TABLET GT SCH ×2 (09:31→17:25)
[2020-05-08] MEDS: BROMOCRIPTINE MESYLATE (2.5MG) 2.5 MG TABLET GT SCH ×3 (09:32→17:24)
[2020-05-08] MEDS: DOCUSATE SODIUM LIQ 100 MG/10 ML UDC GT SCH ×2 (09:32→17:24)
[2020-05-08] MEDS: LISINOPRIL (5MG) 5 MG TABLET GT SCH (09:32)
[2020-05-08] MEDS: PROSOURCE / PROSTAT (PYXIS) 30 ML UDC GT SCH (09:34)
[2020-05-08] MEDS: ONDANSETRON HCL/PF 4 MG/2 ML VIAL IVP PRN ×2 (11:42→12:41)
--- NOTE | 2020-05-08 12:00 | NUR ---
RN NOTE WHEN FLUSHING PATIENT'S RFA IV ACCESS PATIENT COMPLAINS OF PAIN AND BURNING AT SITE. NO SIGNS OF REDNESS. WILL REMOVE IV AND INSERT NEW IV ACCESS.
--- NOTE | 2020-05-08 13:11 | NUR ---
RN NOTE NOTIFIED PHARMACY OF PATIENT NOT HAVING DENTURES WITH PRESCRIBED FIXODENT.
[2020-05-08] MEDS ORDERED: GLUCERNA 1.2 1,000 ML BOTTLE GT PRN (14:00)
--- NOTE | 2020-05-08 14:40 | NUR ---
RN NOTE PATIENT IS EXPERIENCING SOB. CURRENTLY SATURATING 98% VIA TPIECE. RT NOTIFIED. WILL CONTINUE TO MONITOR.
[2020-05-08] MEDS: CHLORHEXIDINE GLUCONATE 15 ML UDC MM SCH (17:24)
--- NOTE | 2020-05-08 19:15 | NUR ---
RN OPENING NOTES RECEIVED PT IN BED. AWAKE. A/O X3. PT HAS TPIECE ON 3L OF O2. TOLERATING WELL, NO SOB OR RESP DISTRESS NOTED AT THIS TIME. PT IS ON M/S MONITORING. IV SITE SADA FLUSHED. PT HAS GTUBE, AUSCULTATED FOR PLACEMENT. NO RESIDUAL NOTED. FLUSHED. GLUCERNA RUNNING AT 60ML/HR. REDNESS AND SOME DRAINAGE NOTED AROUND SITE. ISOLATION PRECAUTIONS IN PLACE PENDING PCR RESULT. SAFETY MEASURES IN PLACE. HOB ELEVATED. SIDE RAILS UP X2. BED LOCKED IN LOWEST POSITION WITH BED. CALL LIGHT WITHIN REACH. WILL CONT TO MONITOR.
--- NOTE | 2020-05-08 19:29 | NUR ---
RN CLOSING NOTE PATIENT IS IN BED WITH HOB AT SEMI FOWLERS POSITION. CURRENTLY ON 3L VIA T PIECE WITH NO SIGNS OF LABORED BREATHING. PATIENT IS AOX3. SKIN IS INTACT WITH SOME GTUBE SITE REDNESS. RFA #20 IS PATENT AND INTACT. BED IS LOCKED IN THE LOWEST POSITION, 3 GUARD RAILS RAISED, CALL ALDRIDGE WITHIN REACH, AND ALL HOSPITAL SAFETY PRECAUTIONS ARE BEING FOLLOWED. APPROPRIATE MEDS PASSED DURING SHIFT. WILL ENDORSE TO COLLECTIONS AND ARCHIVES DIRECTOR RN.
[2020-05-08 20:00] VITALS: BP 115/68
--- NOTE | 2020-05-08 20:45 | NUR ---
[facility] 26, ABX HELD. PHARMACY AWARE.
[2020-05-08] MEDS: ATORVASTATIN 40 MG TABLET GT SCH (21:39)
[2020-05-08] MEDS: SENNOSIDES 8.6 MG TABLET GT SCH (21:39)
[2020-05-08] MEDS: QUETIAPINE FUMARATE 25 MG TABLET GT SCH (21:39)
[2020-05-08] MEDS: oxyCODONE IR immediate release 5 MG GT PRN (22:39)
--- NOTE | 2020-05-08 22:40 | NUR ---
PT C/O LEFT GENERALIZED PAIN 10/10. PRN OXYCODONE ADMINISTERED ORDERED
[2020-05-09] MEDS: IPRATROPIUM NEB FS 0.5 MG/2.5 ML AMPUL.NEB NEB SCH ×3 (01:30→13:47)
[2020-05-09 04:00] VITALS: BP 136/49
--- NOTE | 2020-05-09 06:08 | NUR ---
PT REFUSED LAB DRAW THIS MORNING, EXPLAINED RISKS AND BENEFITS X2. STILL REFUSED.
--- NOTE | 2020-05-09 06:31 | NUR ---
RN CLOSING NOTES NO SIGNIFICANT CHANGES IN PT CONDITION. STILL REMAINS WITH TPIECE DELIVERING 3L OF O2. TOLERATING WELL. NO SOB OR RESP DISTRESS NOTED. PT DENIES PAIN. ALL NEEDS ATTENDED. STILL HAS GT FEEDING RUNNING ORDERED. SAFETY MEASURES IN PLACE. HOB ELEVATED. SIDE RAILS UP X2. BED LOCKED IN LOWEST POSITION WITH BED ALARM ON. CALL LIGHT WITHIN REACH. WILL ENDORSE TO AM NURSE FOR CONTINUATION OF CARE.
[2020-05-09] MEDS: BLOOD SUGAR DIAGNOSTIC 1 EACH STRIP VI SCH ×2 (07:30→12:27)
[2020-05-09 08:00] VITALS: BP 132/72
[2020-05-09] MEDS ORDERED: VANCOMYCIN 1 GM in IV D5W 250 ML IV SCH (08:00)
--- NOTE | 2020-05-09 08:00 | NUR ---
MS RN NOTES PATIENT IN BED AWAKE ALERT ORIENTED STILL REMAINS WITH TPIECE DELIVERING 3L OF O2. TOLERATING WELL. NO SOB OR RESP DISTRESS NOTED. PT DENIES PAIN. ALL NEEDS ATTENDED. STILL HAS GT FEEDING RUNNING ORDERED. SAFETY MEASURES IN PLACE. HOB ELEVATED. SIDE RAILS UP X2. BED LOCKED IN LOWEST POSITION WITH BED ALARM ON. CALL LIGHT WITHIN REACH ON G TUBE FEEDING ORDERED NO RESIDUAL NOTED ,RT UPPER ARM HL INTACT AND FLUSHED WELL ,WILL CONT TO MONITOR
[2020-05-09 08:11] LABS: CALCIUM, SERUM 8.8 mg/dL (8.5-10.1); CREATININE 0.7 mg/dL (0.6-1.3); POTASSIUM 4.3 mmol/L (3.5-5.1)
[2020-05-09] MEDS ORDERED: LACT10SO58 GT (08:49)
[2020-05-09] MEDS ORDERED: SULF1TAB48 PO (08:49)
[2020-05-09] MEDS: METFORMIN 500 MG TABLET GT SCH (09:00)
[2020-05-09] MEDS: INSULIN GLARGINE, 100 UNIT/ML CARTRIDGE SQ SCH ×2 (09:00→10:01)
[2020-05-09] MEDS: DOCUSATE SODIUM LIQ 100 MG/10 ML UDC GT SCH (09:33)
[2020-05-09] MEDS: LEVETIRACETAM SOL (5 ML) 100 MG/ML UDC GT SCH (09:34)
[2020-05-09] MEDS: LACTULOSE 10 G/15 ML UDC (PYXIS) GT SCH (09:34)
[2020-05-09] MEDS: CHLORHEXIDINE GLUCONATE 15 ML UDC MM SCH (09:34)
[2020-05-09] MEDS: BROMOCRIPTINE MESYLATE (2.5MG) 2.5 MG TABLET GT SCH ×2 (09:35→12:28)
[2020-05-09] MEDS: ACIDOPHILUS/BULGARICUS 1 EACH TAB.CHEW GT SCH (09:35)
[2020-05-09] MEDS: NICOTINE PATCH (14MG) 14 MG PATCH.TD24 TD SCH (09:35)
[2020-05-09] MEDS: PANTOPRAZOLE 40 MG/PACK PACK GT SCH (09:35)
[2020-05-09] MEDS: ASCORBIC ACID 500 MG TABLET GT SCH (09:35)
[2020-05-09] MEDS: PROSOURCE / PROSTAT (PYXIS) 30 ML UDC GT SCH (09:35)
[2020-05-09] MEDS: METOPROLOL TARTRATE 50 MG TABLET GT SCH (09:36)
[2020-05-09] MEDS: ASPIRIN 81 MG TAB.CHEW GT SCH (09:36)
[2020-05-09] MEDS: SPIRONOLACTONE 25 MG TABLET GT SCH (09:37)
[2020-05-09] MEDS: LISINOPRIL (5MG) 5 MG TABLET GT SCH (09:37)
[2020-05-09] MEDS: MULTIVIT W/MINERALS 1 TAB TABLET GT SCH (09:37)
[2020-05-09] MEDS: AMIODARONE HCL 200 MG TABLET GT SCH (09:37)
[2020-05-09] MEDS: MAGNESIUM OXIDE 400 MG TABLET GT SCH (09:38)
[2020-05-09] MEDS: HEPARIN SODIUM, PORCINE 5000 UNITS/1 ML VIAL SQ SCH (09:39)
--- NOTE | 2020-05-09 09:48 | NUR ---
WOUND CARE CONSULT: REVIEWED CHART, NURSING DOCUMENTATION AND SPOKE WITH NURSING STAFF. RECOMMENDATIONS MADE FOR SKIN PROTECTION. DISCUSSED WITH NURSING STAFF. MD IN AGREEMENT WITH PLAN OF CARE.
--- NOTE | 2020-05-09 12:28 | NUR ---
ms rn note offered to suction trach but still refused
--- NOTE | 2020-05-09 13:00 | NUR ---
MS RN NOTE PER DR BUSTILLOS DISCHARGE TO SNF , CASE MANGER NOTIFIED
--- NOTE | 2020-05-09 14:08 | NUR ---
MS RN NOTE CALLED TO FACILITY [facility] ,REPORT GIVEN SPOKE WITH LUIS A FOUNTAIN ALSO WASHER ASSEMBLER SPOKE WITH SON NOTIFIED THAT PATIENT WILL BE TRANSFER TO SNF
--- NOTE | 2020-05-09 14:17 | NUR ---
MS RN NOTE RT AT BEDSIDE TRACH CARE DONE AND BREATHING TX DONE, ALSO PATIENT STRANGELY REFUSING TO DO PICTURE UPON DISCHARGE STATED THAT ITS HURTS WHEN TOUCH G TUBE SITE ,PATIENT WISES RESPECTED
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
[2020-05-09 15:52] VITALS: BP 126/72
--- NOTE | 2020-05-09 16:12 | NUR ---
SS Note: SS received consult for this pt. and SW attempted to meet with pt. However, pt. has already been discharged to [facility] [phone] and pt.'s son, Alexis Larry (SON) [phone] is aware.
[2020-05-09] MEDS ORDERED: CHLORHEXIDINE GLUCONATE 4% 118 ML BOTTLE TP SCH (18:00)
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
== END 2020-05-09 15:59 | DRG 393 ==
LOC: ER 15:04 → MEDSG1 17:34
PROVIDERS: ADMIT Internal Medicine; ATTEND Internal Medicine
DX: K94.22 Gastrostomy infection (principal); K85.90 Acute pancreatitis without necrosis or infection, unspecified; J96.20 Acute and chronic respiratory failure, unspecified whether with hypoxia or hypercapnia; L03.311 Cellulitis of abdominal wall; I69.359 Hemiplegia and hemiparesis following cerebral infarction affecting unspecified side; Y83.8 Other surgical procedures as the cause of abnormal reaction of the patient, or of later complication, without mention of misadventure at the time of the procedure; Y73.8 Miscellaneous gastroenterology and urology devices associated with adverse incidents, not elsewhere classified; Y92.129 Unspecified place in nursing home as the place of occurrence of the external cause; Z20.822 Contact with and (suspected) exposure to COVID-19; G40.909 Epilepsy, unspecified, not intractable, without status epilepticus; J44.9 Chronic obstructive pulmonary disease, unspecified; E78.5 Hyperlipidemia, unspecified; K21.9 Gastro-esophageal reflux disease without esophagitis; E11.42 Type 2 diabetes mellitus with diabetic polyneuropathy; F29 Unspecified psychosis not due to a substance or known physiological condition; Z89.422 Acquired absence of other left toe(s); Z91.040 Latex allergy status; Z91.048 Other nonmedicinal substance allergy status; Z79.84 Long term (current) use of oral hypoglycemic drugs; Z79.51 Long term (current) use of inhaled steroids; R13.10 Dysphagia, unspecified; Z79.899 Other long term (current) drug therapy; Z79.82 Long term (current) use of aspirin; G20 Parkinson's disease; I50.9 Heart failure, unspecified; K59.09 Other constipation
CPT/HCPCS: 31720; 36415; 71045-TC; 80048-TC; 80076-TC; 80202-TC; 82962-TC; 83690-TC; 83735-TC; 84100-TC; 85025-TC; 85730-TC; 87040-TC; 87081-TC; A4623; G0378; J1644; J1815; J1953; J2405; J2543; J3370; J7050; J7060; U0003

== ENCOUNTER 2020-09-09 20:40 | Inpatient (IN) | payer MEDICARE, OTHER ==
[~2020-09-09] VITALS: Ht 180.3 cm; Wt 78.9 kg
[~2020-09-09 20:40] MED LIST changes: +ACET-2605 GT; +AMIN30LI2 GT; -APIX5TAB GT; -ASCO500C17 GT; +ASCO500T10 GT; +CHLO118L6 TP; -CRAN3875 GT; -DIGO125T GT; +HEPA50007 SQ; +INSU100V27 SQ; -INSU100V28 IJ; +LACT10SO58 GT; -LANS30CA56 GT; +LEVE500T9 GT; +MAGN400T26 GT; +NICO-676 TD; +NUT.237L31 GT; +OMEG1CAP GT; +OMEP20CA15 GT; +SACC250C GT; +SULF1TAB48 PO; +[UNRECOGNIZED DRUG - CODE] IM
[2020-09-09] MEDS ORDERED: ASPIRIN 325 MG TABLET PO ONE (21:00)
--- NOTE | 2020-09-09 21:15 | NUR ---
MUKUND FROM [facility] TO ER BED 5. AAOX4. NOT IN RESP DISTRESS. BED BOUND. BROUGHT IN FOR MID STERNAL CHEST PAIN STARTED YESTERDAY NON RADIATING [place]ARP 06/10. PT RECEIVED 3 SPRAY OF NITRO AND ASPIRIN 325MG FROM EMS ENROUTE TO ER WITH ANY RELIEF. PT IS HOOKED ON MONITOR AND EKG DONE AT BEDSIDE. WAS AT THE BEDSIDE FOR EVAL. ORDERS RECEIVED, NOTED AND CARRIED OUT. IV LINE ESTABLISHED ON THE RFA 20G, BLOOD DRAWN AND SENT TO LAB.
[2020-09-09 21:20] LABS: BASOPHILS # (AUTO) 0.1 K/uL (0.0-0.2); BASOPHILS % (AUTO) 1.1 % (0.0-2.0); EOSINOPHILS % (AUTO) 1.4 % (0.0-6.0); HEMATOCRIT 44 % (39-51); HEMOGLOBIN 14.6 g/dL (13.5-17.5); LYMPHOCYTES # (AUTO) 2.6 K/uL (0.8-4.8); LYMPHOCYTES % (AUTO) 34.4 % (20.0-44.0); MEAN CORPUSCULAR HGB CONC 33 g/dl (31.0-36.0); MEAN CORPUSCULAR VOLUME 94 fL (80-96); MONOCYTES # (AUTO) 0.5 K/uL (0.1-1.30); NEUTROPHILS # (AUTO) 4.3 K/uL (1.8-8.9); NEUTROPHILS % (AUTO) 56.1 % (43.0-81.0); PLATELET COUNT (AUTO) 203 K/uL (150-450); RED BLOOD CELL COUNT(AUTO) 4.72 MIL/uL (4.5-6.0); WHITE BLOOD COUNT (AUTO) 7.7 K/uL (4.3-11.0)
[2020-09-09 21:52] LABS: CALCIUM, SERUM 8.9 mg/dL (8.5-10.1); CARBON DIOXIDE 30 mmol/L (21-32); CHLORIDE 103 mmol/L (98-107); CREATININE 0.7 mg/dL (0.6-1.3); GLUCOSE 91 mg/dL (74-106); POTASSIUM 4.4 mmol/L (3.5-5.1); SODIUM SERUM 140 mmol/L (136-145); UREA NITROGEN, BLOOD 18 mg/dL (7-18)
--- NOTE | 2020-09-09 22:31 | NUR ---
DR FARIDEH STODDARD FOR PANEL
--- NOTE | 2020-09-09 22:44 | NUR ---
COVID SWAB DONE AND SENT TO LAB
[2020-09-09] MEDS ORDERED: BISACODYL SUPP (10 MG) 10 MG/SUPP.RECT SUPP.RECT RC PRN (23:30)
[2020-09-09] MEDS ORDERED: NA PHOS,M-B/NA PHOS,DI-BA 1 EA ENEMA RC PRN (23:30)
[2020-09-09] MEDS ORDERED: MAGNESIUM HYDROXIDE 30 ML UDC GT PRN (23:30)
[2020-09-09] MEDS ORDERED: GLUCERNA 1.5 1,000 ML BOTTLE GT SCH (23:30)
[2020-09-09] MEDS ORDERED: ACETAMINOPHEN 650 MG/20.3 ML UDC GT PRN (23:45)
--- NOTE | 2020-09-10 02:23 | NUR ---
REPORT GIVEN TO ORLANDO FOUNTAIN FOR MYRANDA.
--- NOTE | 2020-09-10 02:49 | NUR ---
PT TRANSPORTED TO 1ST FLOOR
[2020-09-10 03:00] VITALS: BP 101/60
[2020-09-10] MEDS: oxyCODONE IR immediate release 5 MG GT PRN ×2 (03:25→13:39)
--- NOTE | 2020-09-10 06:24 | NUR ---
PROOF SORTER NOTES AWAKE & RESPONSIVE. NOT IN ANY DISTRESS. NO SOB NOTED. DENIES ANY PAIN OR DISCOMFORT AT THIS TIME. ON TELE SB @ 56 WITH IV-HL PATENT & INTACT. AM CARE DONE. MONITORED ACCORDINGLY. CALL LIGHT WITHIN REACH. BED IN LOWEST POSITION. SR UP X 3 WITH BED ALARM ON FOR SAFETY. WILL ENDORSE TO NEXT SHIFT.
--- NOTE | 2020-09-10 07:15 | NUR ---
RN NOTE PATIENT OBSERVED IN BED, AWAKE AT THIS TIME, A/0 X4, BREATHING EVEN AND UNLABORED, ON TELEMONITOR SB HR OF 58, ON T-PIECE WITH TEXTILE DYER ON ROOM AIR O2 SAT OF 98%, NPO AT THIS TIME, HOB FOR ASPIRATION PRECAUTION, NO COMPLAINS OF CHEST PAIN AT THIS TIME, WILL FOLLOW UP WITH PCP, SAFETY MEASURES OBSERVED, CALL LIGHT WITHIN REACH, BED ALARM ON, BED WHEELS LOCK. WILL CONTINUE TO MONITOR.
[2020-09-10 08:00] VITALS: BP 118/88
[2020-09-10] MEDS: PROSOURCE / PROSTAT (PYXIS) 30 ML UDC GT SCH (08:39)
[2020-09-10] MEDS: MULTIVIT W/MINERALS 1 TAB TABLET GT SCH (08:42)
[2020-09-10] MEDS: ASPIRIN 81 MG TAB.CHEW GT SCH (08:42)
[2020-09-10] MEDS: LACTULOSE 10 G/15 ML UDC (PYXIS) GT SCH (08:42)
[2020-09-10] MEDS: BROMOCRIPTINE MESYLATE (2.5MG) 2.5 MG TABLET GT SCH ×3 (08:42→17:56)
[2020-09-10] MEDS: ACIDOPHILUS/BULGARICUS 1 EACH TAB.CHEW GT SCH (08:42)
[2020-09-10] MEDS: SPIRONOLACTONE 25 MG TABLET GT SCH (08:43)
[2020-09-10] MEDS: LISINOPRIL (5MG) 5 MG TABLET GT SCH (08:43)
[2020-09-10] MEDS: LEVETIRACETAM SOL (5 ML) 100 MG/ML UDC GT SCH ×2 (08:43→20:10)
[2020-09-10] MEDS: DOCUSATE SODIUM LIQ 100 MG/10 ML UDC GT SCH ×2 (08:43→17:54)
[2020-09-10] MEDS: AMIODARONE HCL 200 MG TABLET GT SCH ×2 (08:44→17:00)
[2020-09-10] MEDS: METOPROLOL TARTRATE 50 MG TABLET GT SCH ×2 (08:44→17:00)
[2020-09-10] MEDS: MAGNESIUM OXIDE 400 MG TABLET GT SCH (08:44)
[2020-09-10] MEDS: HEPARIN SODIUM, PORCINE 5000 UNITS/1 ML VIAL SQ SCH ×2 (09:00→20:15)
--- NOTE | 2020-09-10 09:18 | NUR ---
RN NOTE PATIENT ALERT AND ORIENTED X4 ABLE TO VERBALIZE, REFUSED AM LABORATORY BLOOD DRAW, EXPLAINED RISK AND BENEFITS TO PATIENT 3X, PATIENT REFUSED HEPARIN INJ EXPLAINED RISK AND BENEFITS 3X, DR. BUSTILLOS MADE AWARE. WILL CONTINUE TO MONITOR PATIENT.
--- NOTE | 2020-09-10 10:32 | NUR ---
RN NOTE DR. BUSTILLOS NOTIFIED THAT PATIENT HAS BEEN ON NPO SINCE ADMISSION, OK TO RESUME PREVIOUS DIET FROM SNF ORDERED, HOLD LANTUS TODAY AND START WITH INSULIN SLIDING SCALE ORDERED, ORDERS NOTED AND CARRIED OUT.
[2020-09-10] MEDS: INSULIN GLARGINE, 100 UNIT/ML CARTRIDGE SQ SCH ×2 (10:34→20:37)
[2020-09-10] MEDS ORDERED: DEXTROSE 50%-WATER 50 ML DISP.SYRIN IV PRN (11:00)
[2020-09-10] MEDS ORDERED: *INSULIN REGULAR(HUMULIN R)HUM 100 UNIT/ML VIAL SQ PRN (11:00)
[2020-09-10 12:00] VITALS: BP 103/63
[2020-09-10] MEDS: BLOOD SUGAR DIAGNOSTIC 1 EACH STRIP VI SCH ×3 (12:55→22:00)
--- NOTE | 2020-09-10 15:40 | NUR ---
RN NOTE DIETARY RECOMMENDATION GLUCERNA 1.2 @90CC/HR TO RUN FOR 12 HRS, FROM [phone] TOLERATED, RESUME PREVIOUS PO DIET. MD MADE AWARE, ORDERS NOTED AND CARRIED OUT
[2020-09-10 16:00] VITALS: BP 98/57
[2020-09-10] MEDS: INSULIN REGULAR, HUMAN 100 UNIT/ML 3 ML VIAL SQ PRN (18:02)
[2020-09-10] MEDS ORDERED: GLUCERNA 1.2 1,000 ML BOTTLE GT SCH (19:00)
--- NOTE | 2020-09-10 19:00 | NUR ---
RN NOTE RECEIVED PATIENT IN BED RESTING ALERT ORIENTED X4 VERBALLY RESPONSIVE ON ROOM AIR O2:97% ON T PIECE CAPPED,IV SITE IS ON RIGHT FOREARM INTACT PATENT ON G-TUBE FEEDING CHECKED PLACEMENT IN PLACE NO RESIDUAL NOTED,ON GLUCERNA 1.2 90CC/HR HEAD OF THE BED ELEVATED,INCONTINENT TO BOWEL/BLADDER,SAFETY MEASURE IMPLEMENT,CALL LIGHT WITHIN REACH,CONTINUE TO MONITOR.
--- NOTE | 2020-09-10 19:18 | NUR ---
RN NOTE PATIENT OBSERVED IN BED, AWAKE AT THIS TIME, A/0 X4, BREATHING EVEN AND UNLABORED, ON TELEMONITOR SB HR OF 58, ON T-PIECE WITH DENTAL AIDE ON ROOM AIR O2 SAT OF 98%, MECHANICAL SOFT DIET, GT FEEDING AT HS GLUCERNA 1.2 @90CC/HR FOR 12HRS, HOB FOR ASPIRATION PRECAUTION, NO COMPLAINS OF CHEST PAIN AT THIS TIME, DR. BUSTILLOS AWARE OF PATIENT CURRENT CONDITION, SAFETY MEASURES OBSERVED, CALL LIGHT WITHIN REACH, BED ALARM ON, BED WHEELS LOCK. WILL CONTINUE TO MONITOR. WILL ENDORSE TO NOC SHIFT.
[2020-09-10 20:00] VITALS: BP 104/64
--- NOTE | 2020-09-10 20:00 | NUR ---
RN NOTE PATIENT REQUESTING FOR IV PAIN MEDS CALLED [facility] AND SPOKE WITH CLAY PIGEON LOADER [employer] [facility] WITH NEW ORDER MORPHINE 4MG IV PUSH EVERY 6 HOURS NEEDED FOR SEVERE PAIN AND DISCONTINUE OXYCODONE EVERY 6 HOURS NOTED AND CARRIED OUT.
[2020-09-10] MEDS: QUETIAPINE FUMARATE 25 MG TABLET GT SCH (21:31)
[2020-09-10] MEDS: SENNOSIDES 8.6 MG TABLET GT SCH (21:31)
--- NOTE | 2020-09-10 22:17 | NUR ---
RN NOTE PATIENT REFUSED TO CHECKED FOR BLOOD SUGAR EXPLAINED RISKS AND BENEFITS STILL REFUSED CONTINUE TO MONITOR.
[2020-09-10] MEDS: MORPHINE SULFATE INJ 4 MG/ML DISP.SYRIN IV PRN (22:47)
[2020-09-11] VITALS: BP 118/70
[2020-09-11 04:00] VITALS: BP 99/59
--- NOTE | 2020-09-11 06:59 | NUR ---
RN NOTE PATIENT REMAINS ON ALERT ORIENTED X3 NO SOB NOT ACUTE DISTRESS NOTED ON ROOM AIR 94% IV SITE IS ON RIGHT FOREARM INTACT PATENT KEPT CLEAN AND DRY ALL THE TIME,KEPT COMFORTABLE,REPOSITIONED EVERY 2 HOURS,KEPT CALL LIGHT WITHIN REACH,ALL NEEDS MET ENDORSE NEXT COMING SHIFT FOR CONTINUATION OF CARE.
--- NOTE | 2020-09-11 07:15 | NUR ---
RN NOTE PATIENT OBSERVED ON BED, AWAKE, ALERT AND ORIENTED X4, ON TRACHEOSTOMY, PLUG TOLERATING WELL, ON ROOM AIR O2 SAT OF 98%, LEFT SIDED WEAKNESS NOTED, ABLE TO MOVE RIGHT UPPER ARMS WNL, REFUSED AM LAB DRAW NOTIFIED DR. BUSTILLOS, ON TELEMONITOR SINUS RHYTHM OF 63 AT THIS TIME, PATIENT HAS G-TUBE PATENT UPON ASSESSMENT, SAFETY MEASURES OBSERVED,BED WHEELS LOCK, BED ALARM ON, CALL LIGHT WITHIN REACH, WILL CONTINUE TO MONITOR.
[2020-09-11] MEDS: BLOOD SUGAR DIAGNOSTIC 1 EACH STRIP VI SCH ×4 (07:30→22:00)
[2020-09-11 08:00] VITALS: BP 114/72
--- NOTE | 2020-09-11 08:26 | NUR ---
RN NOTE PATIENT REFUSING BLOOD SUGAR MONITOR FOR THIS MORNING, DR. BUSTILLOS NOTIFIED.
--- NOTE | 2020-09-11 08:42 | NUR ---
RN NOTE HOLD LANTUS PER DR. BUSTILLOS, PATIENT REFUSED BLOOD SUGAR CHECK.
[2020-09-11] MEDS: INSULIN GLARGINE, 100 UNIT/ML CARTRIDGE SQ SCH ×2 (08:43→22:00)
[2020-09-11] MEDS: INSULIN REGULAR, HUMAN 100 UNIT/ML 3 ML VIAL SQ PRN ×3 (08:44→17:57)
[2020-09-11] MEDS: ASPIRIN 81 MG TAB.CHEW GT SCH (09:46)
[2020-09-11] MEDS: BROMOCRIPTINE MESYLATE (2.5MG) 2.5 MG TABLET GT SCH ×3 (09:46→17:56)
[2020-09-11] MEDS: LEVETIRACETAM SOL (5 ML) 100 MG/ML UDC GT SCH ×2 (09:46→23:19)
[2020-09-11] MEDS: ACIDOPHILUS/BULGARICUS 1 EACH TAB.CHEW GT SCH (09:46)
[2020-09-11] MEDS: LACTULOSE 10 G/15 ML UDC (PYXIS) GT SCH (09:48)
[2020-09-11] MEDS: SPIRONOLACTONE 25 MG TABLET GT SCH (09:48)
[2020-09-11] MEDS: MULTIVIT W/MINERALS 1 TAB TABLET GT SCH (09:48)
[2020-09-11] MEDS: MAGNESIUM OXIDE 400 MG TABLET GT SCH (09:48)
[2020-09-11] MEDS: LISINOPRIL (5MG) 5 MG TABLET GT SCH (09:49)
[2020-09-11] MEDS: AMIODARONE HCL 200 MG TABLET GT SCH ×2 (09:50→17:00)
[2020-09-11] MEDS: METOPROLOL TARTRATE 50 MG TABLET GT SCH ×2 (09:50→17:00)
[2020-09-11] MEDS: DOCUSATE SODIUM LIQ 100 MG/10 ML UDC GT SCH ×2 (09:51→17:55)
[2020-09-11] MEDS: HEPARIN SODIUM, PORCINE 5000 UNITS/1 ML VIAL SQ SCH ×2 (09:55→21:00)
--- NOTE | 2020-09-11 10:01 | NUR ---
RN NOTE PATIENT REFUSING HEPARIN 5000 UNITS EXPLAINED RISK AND BENEFITS 3X PATIENT IS ALERT AND ORIENTED X4, MD NOTIFIED.
[2020-09-11] MEDS: PROSOURCE / PROSTAT (PYXIS) 30 ML UDC GT SCH (10:02)
--- NOTE | 2020-09-11 10:22 | NUR ---
RN NOTE PATIENT REFUSED MULTIPLE ATTEMPT OF BLOOD DRAW FOR LABORATORY TODAY PATIENT IS ALERT AND ORIENTED X4, EXPLAINED RISK AND BENEFITS X3, MD NOTIFIED
--- NOTE | 2020-09-11 11:17 | NUR ---
RN NOTE PATIENT REFUSED BLOOD SUGAR CHECK, EXPLAINED RISK AND BENEFITS 3X, ALERT AND ORIENTED X4, MD AWARE.
[2020-09-11 12:00] VITALS: BP 108/65
--- NOTE | 2020-09-11 13:50 | NUR ---
RN NOTE OBTAINED CONSENT FROM PATIENT FOR CT ANGIOGRAPHY OF THE HEART WITH E DIMENSIONAL VIEW ORDERED BY DR. DC.
[2020-09-11] MEDS ORDERED: CT SWABBABLE VALVE TRANS SET 1 EA INFUS.SET MC ONE (14:19)
[2020-09-11] MEDS ORDERED: IV NS 0.9% 250 ML IV ONE (14:19)
[2020-09-11] MEDS ORDERED: IOHEXOL-350 100 ML VIAL IV ONE (14:19)
--- NOTE | 2020-09-11 14:41 | NUR ---
PT. REFUSED FOR CTA HEART, DUE TO IV LINE INSERTION. ESSIE PARRA IS AWARE.
--- NOTE | 2020-09-11 14:53 | NUR ---
RN NOTE PATIENT REFUSED NEW IV SITE INSERTION ON CT LABORATORY, CT ANGIOGRAPHY OF THE HEART WITH 3 DIMENSIONAL VIEW NOT DONE, MADE AWARE.
[2020-09-11 16:00] VITALS: BP 97/51
[2020-09-11 16:47] LABS: HEMATOCRIT 42 % (39-51); MEAN CORPUSCULAR HGB CONC 34 g/dl (31.0-36.0); MEAN CORPUSCULAR VOLUME 95 fL (80-96); RED BLOOD CELL COUNT(AUTO) 4.41 MIL/uL (4.5-6.0); WHITE BLOOD COUNT (AUTO) 7.4 K/uL (4.3-11.0)
[2020-09-11 16:48] LABS: BASOPHILS % (AUTO) 0.6 % (0.0-2.0); EOSINOPHILS % (AUTO) 0.8 % (0.0-6.0); LYMPHOCYTES # (AUTO) 1.6 K/uL (0.8-4.8); LYMPHOCYTES % (AUTO) 21.8 % (20.0-44.0); MONOCYTES # (AUTO) 0.5 K/uL (0.1-1.30); MONOCYTES % (AUTO) 7.1 % (2.0-12.0); NEUTROPHILS # (AUTO) 5.1 K/uL (1.8-8.9); NEUTROPHILS % (AUTO) 69.7 % (43.0-81.0); PLATELET COUNT (AUTO) 188 K/uL (150-450)
[2020-09-11 17:13] LABS: ALANINE AMINOTRANSFERASE 47 U/L (12-78); ALBUMIN 2.8 g/dL (3.4-5.0); ALKALINE PHOSPHATASE 90 U/L (46-116); ASPARTATE AMINOTRANSFERASE 18 U/L (15-37); BILIRUBIN,TOTAL 0.4 mg/dL (0.2-1.0); CALCIUM, SERUM 8.8 mg/dL (8.5-10.1); CARBON DIOXIDE 30 mmol/L (21-32); CHLORIDE 105 mmol/L (98-107); CREATININE 0.6 mg/dL (0.6-1.3); GLUCOSE 117 mg/dL (74-106); MAGNESIUM 2.1 mg/dL (1.8-2.4); PHOSPHORUS 3.4 mg/dL (2.5-4.9); POTASSIUM 4.3 mmol/L (3.5-5.1); SODIUM SERUM 141 mmol/L (136-145); TOTAL PROTEIN, SERUM 6.5 g/dL (6.4-8.2); UREA NITROGEN, BLOOD 19 mg/dL (7-18)
[2020-09-11 17:18] LABS: CHOLESTEROL 94 mg/dL (<200); HDL CHOLESTEROL 36 mg/dL (40-60); LDL 44 mg/dL (0-99); THYROID STIMULATING HORMONE 2.382 uIU/mL (0.358-3.74); TRIGLYCERIDES 49 mg/dL (30-150)
--- NOTE | 2020-09-11 17:57 | NUR ---
RN NOTE PATIENT AWAKE, ALERT AND ORIENTED X 4 REFUSED BLOOD SUGAR CHECK AC MEALS, MD IS AWARE.
--- NOTE | 2020-09-11 18:58 | NUR ---
N NOTE PATIENT OBSERVED ON BED, AWAKE, ALERT AND ORIENTED X4, ON TRACHEOSTOMY, TOLERATING WELL, ON ROOM AIR O2 SAT OF 98%, LEFT SIDED WEAKNESS NOTED, ABLE TO MOVE RIGHT UPPER ARMS WNL, PATIENT FOR DISCHARGE IF COVID PCR TEST RESULT IS NEGATIVE, ITS CURRENTLY PENDING AT THIS TIME, ON TELEMONITOR SINUS BRADYCARDIA HR OF 56 AT THIS TIME, PATIENT HAS G-TUBE PATENT UPON ASSESSMENT, PATIENT HAS REFUSED ALL BLOOD SUGAR FINGER STICK CHECK AND HEPARIN SHOT MD IS AWARE, SAFETY MEASURES OBSERVED,BED WHEELS LOCK, BED ALARM ON, CALL LIGHT WITHIN REACH, WILL CONTINUE TO MONITOR. WILL ENDORSE WITH NOC SHIFT.
[2020-09-11 20:00] VITALS: BP 112/56
[2020-09-11] MEDS: SENNOSIDES 8.6 MG TABLET GT SCH (22:00)
[2020-09-11] MEDS: QUETIAPINE FUMARATE 25 MG TABLET GT SCH (23:20)
[2020-09-11] MEDS: MORPHINE SULFATE INJ 4 MG/ML DISP.SYRIN IV PRN (23:20)
--- NOTE | 2020-09-11 23:22 | NUR ---
RT NOTE PT PLACED ON 28% NASAL CANNULA WITH HUMIDIFIER. PT REFUSED SX AFTER EXPLAINING RISKS AND BENEFITS. PT ABLE TO COUGH UP SECRETIONS. PT TOLERATING NASAL CANNULA WELL. ESSIE MOSQUERA AWARE. WILL MONITOR.
[2020-09-12] VITALS: BP 102/65
[2020-09-12 04:00] VITALS: BP 105/60
--- NOTE | 2020-09-12 04:49 | NUR ---
PATIENT ALERT HAS LEFT SIDE WEAKNESS LEFT ARM CONTRACTED LUNGS CLEAR HAS 02 3 LITERS ON WITH HUMIIDIFIER PATIENT PCR PENDING PATIENT HAS A TRACH PLUGED. STARTED GLUCERNIA AT 90 HR. NO RECIDUALS. PATIENT REFUSE SOME MEDICATION AND BLOOD SUGAR STICKS .PATIENT SINUS ON MONITOR
[2020-09-12] MEDS: BLOOD SUGAR DIAGNOSTIC 1 EACH STRIP VI SCH ×2 (07:30→11:21)
--- NOTE | 2020-09-12 07:30 | NUR ---
RN NOTE PATIENT IS IN BED WITH HOB AT SEMI FOWLERS POSITION. PATIENT IS ON 2L NC WITH NO SIGNS OF LABORED BREATHING. PATIENT IS AOX4. GTUBE IS IN PLACE. RFA 20 IS PATENT AND INTACT. BED IS LOCKED IN THE LOWEST POSITION, 3 GUARD RAILS RAISED, CALL ALDRIDGE WITHIN REACH, AND ALL HOSPITAL SAFETY PRECAUTIONS ARE BEING FOLLOWED. WILL CONTINUE TO MONITOR THROUGHOUT SHIFT.
[2020-09-12 08:00] VITALS: BP 110/61
[2020-09-12] MEDS: HEPARIN SODIUM, PORCINE 5000 UNITS/1 ML VIAL SQ SCH ×2 (09:00→09:33)
[2020-09-12] MEDS: AMIODARONE HCL 200 MG TABLET GT SCH (09:00)
[2020-09-12] MEDS: METOPROLOL TARTRATE 50 MG TABLET GT SCH (09:00)
[2020-09-12] MEDS: LISINOPRIL (5MG) 5 MG TABLET GT SCH (09:00)
[2020-09-12] MEDS: INSULIN GLARGINE, 100 UNIT/ML CARTRIDGE SQ SCH (09:00)
[2020-09-12] MEDS: LACTULOSE 10 G/15 ML UDC (PYXIS) GT SCH (09:29)
[2020-09-12] MEDS: MULTIVIT W/MINERALS 1 TAB TABLET GT SCH (09:29)
[2020-09-12] MEDS: DOCUSATE SODIUM LIQ 100 MG/10 ML UDC GT SCH (09:30)
[2020-09-12] MEDS: SPIRONOLACTONE 25 MG TABLET GT SCH (09:30)
[2020-09-12] MEDS: ACIDOPHILUS/BULGARICUS 1 EACH TAB.CHEW GT SCH (09:30)
[2020-09-12] MEDS: ASPIRIN 81 MG TAB.CHEW GT SCH (09:30)
--- NOTE | 2020-09-12 09:30 | NUR ---
RN NOTE HEART RATE MEDICATIONS HELD FOR HR OF 55. PATIENT REFUSED HEPARIN, ACCU CHECK, AND LANTUS. EXPLAINED TO PATIENT IMPORTANCE OF MEDICATION ADHERENCE AND POTENTIAL SIDE EFFECTS. PATIENT STILL REFUSED.
[2020-09-12] MEDS: MAGNESIUM OXIDE 400 MG TABLET GT SCH (09:31)
[2020-09-12] MEDS: LEVETIRACETAM SOL (5 ML) 100 MG/ML UDC GT SCH (09:31)
[2020-09-12] MEDS: PROSOURCE / PROSTAT (PYXIS) 30 ML UDC GT SCH (09:39)
[2020-09-12] MEDS: BROMOCRIPTINE MESYLATE (2.5MG) 2.5 MG TABLET GT SCH ×2 (09:39→13:10)
[2020-09-12 12:00] VITALS: BP 105/55
--- NOTE | 2020-09-12 13:00 | NUR ---
RN NOTE REPORT GIVEN TO BLAINE FOUNTAIN AT [facility]. AWAITING EMT PICKUP.
[2020-09-12] MEDS: MORPHINE SULFATE INJ 4 MG/ML DISP.SYRIN IV PRN (15:30)
--- NOTE | 2020-09-12 16:07 | NUR ---
RN NOTE REPORT GIVEN TO EMT FOR TRANSFER. PATIENT IN STABLE CONDITION AT TIME OF DC.
== END 2020-09-12 15:42 | DRG 313 ==
LOC: ER 20:43 → TELE1 09-10 02:04 → MEDSG1 09-12 08:56
PROVIDERS: ADMIT Internal Medicine; ATTEND Student in an Organized Health Care Education/Training Program
DX: R07.9 Chest pain, unspecified (principal); D68.59 Other primary thrombophilia; I69.354 Hemiplegia and hemiparesis following cerebral infarction affecting left non-dominant side; K86.1 Other chronic pancreatitis; I11.0 Hypertensive heart disease with heart failure; G20 Parkinson's disease; Z20.822 Contact with and (suspected) exposure to COVID-19; Z93.1 Gastrostomy status; Z87.891 Personal history of nicotine dependence; Z93.0 Tracheostomy status; E78.5 Hyperlipidemia, unspecified; I25.2 Old myocardial infarction; Z79.4 Long term (current) use of insulin; K21.9 Gastro-esophageal reflux disease without esophagitis; E11.42 Type 2 diabetes mellitus with diabetic polyneuropathy; F29 Unspecified psychosis not due to a substance or known physiological condition; Z86.718 Personal history of other venous thrombosis and embolism; Z74.01 Bed confinement status; Z79.899 Other long term (current) drug therapy; Z89.422 Acquired absence of other left toe(s); Z91.040 Latex allergy status; Z91.048 Other nonmedicinal substance allergy status; Z79.01 Long term (current) use of anticoagulants; Z79.51 Long term (current) use of inhaled steroids; Z79.82 Long term (current) use of aspirin; I50.9 Heart failure, unspecified; J44.9 Chronic obstructive pulmonary disease, unspecified; Z74.09 Other reduced mobility; F10.21 Alcohol dependence, in remission; R13.10 Dysphagia, unspecified; D64.9 Anemia, unspecified; I25.10 Atherosclerotic heart disease of native coronary artery without angina pectoris
CPT/HCPCS: 36415; 71045-TC; 76700-TC; 80048-TC; 80053-TC; 80061-TC; 82962-TC; 83690-TC; 83735-TC; 83880; 84100-TC; 84443-TC; 84484-TC; 85025-TC; 85378-TC; 87081-TC; 92526; 92611-TC; 93307-TC; 93970-TC; 94799-TC; 97112-TC; 97530-TC; C9803; G0378; J1644; J1815; J1953; J2270; J7050; Q9967; U0003

== ENCOUNTER 2021-03-08 08:16 | Inpatient (IN) | payer MEDICARE, OTHER ==
[~2021-03-08] VITALS: Ht 185.4 cm; Wt 83.9 kg
--- NOTE | 2021-03-08 08:20 | NUR ---
MUKUND Ogden FROM [facility]. C/O L RIB PAIN S/P CARDIAC ARREST 1 WEEK AGO. [id number]. PATIENT AWAKE AND ALERT. TRACHE AND VENT DEPENDENT.
--- NOTE | 2021-03-08 08:44 | NUR ---
BLOOD DRAWN AND SENT TO LAB.
[2021-03-08] MEDS ORDERED: IBUPROFEN 600 MG TABLET ONE (08:49)
[2021-03-08 08:56] LABS: BASOPHILS % (AUTO) 0.4 % (0.0-2.0); EOSINOPHILS % (AUTO) 1.6 % (0.0-6.0); HEMATOCRIT 29 % (39-51); HEMOGLOBIN 9.8 g/dL (13.5-17.5); LYMPHOCYTES % (AUTO) 13.1 % (20.0-44.0); MEAN CORPUSCULAR HGB CONC 34 g/dl (31.0-36.0); MEAN CORPUSCULAR VOLUME 97 fL (80-96); MONOCYTES # (AUTO) 0.7 K/uL (0.1-1.30); MONOCYTES % (AUTO) 9.2 % (2.0-12.0); NEUTROPHILS # (AUTO) 5.9 K/uL (1.8-8.9); NEUTROPHILS % (AUTO) 75.7 % (43.0-81.0); PLATELET COUNT (AUTO) 182 K/uL (150-450); RED BLOOD CELL COUNT(AUTO) 2.98 MIL/uL (4.5-6.0); WHITE BLOOD COUNT (AUTO) 7.7 K/uL (4.3-11.0)
[2021-03-08 09:10] LABS: ALBUMIN 1.7 g/dL (3.4-5.0); BILIRUBIN,DIRECT 0.1 mg/dL (0.0-0.2); BILIRUBIN,TOTAL 0.3 mg/dL (0.2-1.0); CALCIUM, SERUM 8.2 mg/dL (8.5-10.1); CREATININE 0.7 mg/dL (0.6-1.3); TOTAL PROTEIN, SERUM 5.7 g/dL (6.4-8.2)
[2021-03-08] MEDS ORDERED: ASPIRIN 81 MG TAB.CHEW ONE (09:48)
[2021-03-08] MEDS ORDERED: ASPIRIN 81 MG TAB.CHEW GT ONE (10:00)
[2021-03-08] MEDS ORDERED: MAGNESIUM HYDROXIDE 30 ML UDC PO PRN (10:30)
[2021-03-08] MEDS ORDERED: MAGNESIUM HYDROXIDE 30 ML UDC GT PRN (10:30)
[2021-03-08] MEDS ORDERED: ZOLPIDEM TARTRATE 5 MG TABLET PO PRN (10:30)
[2021-03-08] MEDS ORDERED: MAG HYDROX/AL HYDROX/SIMETH 30 ML UDC PO PRN (10:30)
[2021-03-08] MEDS ORDERED: BISACODYL SUPP (10 MG) 10 MG/SUPP.RECT SUPP.RECT RC PRN (10:30)
[2021-03-08] MEDS ORDERED: ONDANSETRON HCL/PF 4 MG/2 ML VIAL IVP PRN (10:30)
[2021-03-08] MEDS ORDERED: ACETAMINOPHEN 325 MG TABLET MC PRN (10:30)
[2021-03-08] MEDS ORDERED: ACETAMINOPHEN 325 MG TABLET PO PRN (10:30)
[2021-03-08] MEDS ORDERED: ACETAMINOPHEN ES 500 MG TABLET GT PRN (10:30)
[2021-03-08] MEDS ORDERED: Z GUARD REMEDY 4 OZ OINT TP PRN (10:30)
[2021-03-08] MEDS ORDERED: MORPHINE SULFATE INJ 10 MG/ML DISP.SYRIN IV PRN (10:30)
[2021-03-08] MEDS ORDERED: GLUCERNA 1.5 1,000 ML BOTTLE GT SCH (10:30)
[2021-03-08] MEDS ORDERED: NA PHOS,M-B/NA PHOS,DI-BA 1 EA ENEMA RC PRN (10:30)
--- NOTE | 2021-03-08 14:14 | NUR ---
CALLED [facility] FOR BED, NO BEDS AVAILABLE AT THIS TIME.
[2021-03-08] MEDS: METOPROLOL TARTRATE 50 MG TABLET GT SCH (17:00)
[2021-03-08] MEDS: CHLORHEXIDINE GLUCONATE 15 ML UDC MM SCH (17:00)
[2021-03-08] MEDS: DOCUSATE SODIUM 100 MG CAPSULE PO SCH (17:00)
--- NOTE | 2021-03-08 17:36 | NUR ---
BED 325-1 GIVEN
--- NOTE | 2021-03-08 17:45 | NUR ---
REPORT GIVEN TO REDD FOUNTAIN FOR MYRANDA
--- NOTE | 2021-03-08 17:45 | NUR ---
FRUIT PEELER ROLANDA AND PT'S BEDSIDE
--- NOTE | 2021-03-08 20:00 | NUR ---
POST CLOSERSAP PROJECT MANAGER NOTES RECEIVED PATIENT ALREADY IN THE ROOM. NO S/S OF APPARENT DISTRESS-- VENT DEPENDENT. PATIENT A/OX3. NO C/O PAIN AT THIS TIME. NEW ID BAND ON PATIENT. BELONGINGS LIST DONE. TELE MONITOR READING PVC WITH 70'S BPM. NO FLUIDS RUNNING AT THE MOMENT, R. AC PATENT AND INTACT. G-TUBE NOTED IN PLACE-- FLUSHED. FRITZ CATHETER DRAINING CLOUDY YELLOW URINE. SAFETY IN PLACE. PER PATIENT HE IS UP TO DATE WITH HIS VACCINATIONS-- WILL DO ADMISSION PROCESS AND WILL FOLLOW THROUGH PATIENT CARE PLAN AND CARRY OUT DOCTOR'S ORDERS.
[2021-03-08] MEDS ORDERED: HEPARIN SODIUM, PORCINE 5000 UNITS/1 ML VIAL SQ SCH (21:00)
[2021-03-08] MEDS: QUETIAPINE FUMARATE 25 MG TABLET GT SCH (22:04)
[2021-03-08] MEDS: ATORVASTATIN 40 MG TABLET GT SCH (22:04)
[2021-03-08] MEDS: SENNOSIDES 8.6 MG TABLET GT SCH (22:04)
[2021-03-08] MEDS: oxyCODONE IR immediate release 5 MG GT PRN (23:09)
[2021-03-09] VITALS: BP 115/81
--- NOTE | 2021-03-09 00:59 | NUR ---
PHOTOCOPYING MACHINE OPERATOR NOTE PER PATIENT THE OXY IR 5MG GIVEN DID NOT HELP WITH HIS PAIN. PATIENT HAS MORPHINE 1MG OUT OF 10MG ORDERED, ASKED MY CHARGE NURSE TO CHECK IF IT IS CORRECT AND IF WE HAVE 10MG OF MORPHINE, PER CHARGE WE SHOULD VERIFY WITH THE PHARMACY AND HAVE THEM CHANGE THE ORDERED MORPHINE DOSE SINCE I WILL ONLY NEED 1MG AND IT WILL BE A LOT OF WASTE IF THE ORDER IS OUT OF 10MG. WILL CLARIFY.
--- NOTE | 2021-03-09 01:21 | NUR ---
SPORTS EDITOR NOTE JUST GOT OFF THE PHONE WITH CECE, PHARMACIST AND CLARIFIED MORPHINE DOSE. PER CECE HE WILL CHANGE THE 10MG DOSE TO SMALLER DOSE. WILL GIVE WHEN VERIFIED.
[2021-03-09] MEDS: MORPHINE SULFATE INJ 2 MG/ML DISP.SYRIN IV PRN ×3 (01:40→18:09)
[2021-03-09 04:00] VITALS: BP 123/54
--- NOTE | 2021-03-09 06:34 | NUR ---
QUALITY COMPLIANCE CONSULTANT CLOSING NOTE PATIENT IN BED WATCHING TELEVISION. A/OX4. NO S/S OF APPARENT DISTRESS-- VENT DEPENDENT. PAIN MANAGED WITH MEDICATION AND PAIN TOLERABLE AT THIS TIME. NO FLUIDS RUNNING AT THS TIME. G-TUBE FLUSHED, TRACH SUCTIONED-- 100ML OF SPUTUM SUCTIONED. TELE MONITOR READING SR WITH PVC'S WHOLE SHIFT. NEEDS ATTENDED. ALL SCHEDULES MEDS ADMINISTERED. FRITZ CATHETER DRAINING CLEAR, YOBANY URINE WITH OUTPUT 1,400. WEIGHT OF 184.5LBS. SAFETY KEPT IN PLACE THE WHOLE SHIFT. WILL ENDORSE TO MORNING SHIFT RN FOR CONTINUITY OF CARE.
--- NOTE | 2021-03-09 07:21 | NUR ---
INDUSTRIAL ELECTRICIAN JOURNEYMAN NOTE CALLED AIDEE SUAREZ AT THIS TIME. MADE AWARE OF VISITATION HOURS PER PATIENT REQUEST.
[2021-03-09 07:24] LABS: BASOPHILS % (AUTO) 0.4 % (0.0-2.0); EOSINOPHILS % (AUTO) 1.1 % (0.0-6.0); HEMATOCRIT 31 % (39-51); HEMOGLOBIN 10.6 g/dL (13.5-17.5); LYMPHOCYTES # (AUTO) 1.4 K/uL (0.8-4.8); MEAN CORPUSCULAR HGB CONC 34 g/dl (31.0-36.0); MEAN CORPUSCULAR VOLUME 96 fL (80-96); MONOCYTES # (AUTO) 0.7 K/uL (0.1-1.30); MONOCYTES % (AUTO) 7.4 % (2.0-12.0); NEUTROPHILS # (AUTO) 6.9 K/uL (1.8-8.9); NEUTROPHILS % (AUTO) 76.1 % (43.0-81.0); PLATELET COUNT (AUTO) 232 K/uL (150-450); WHITE BLOOD COUNT (AUTO) 9.1 K/uL (4.3-11.0)
--- NOTE | 2021-03-09 07:30 | NUR ---
ONLINE MARKETING MANAGER OPENING NOTES RECEIVED PATIENT ON BED AWAKE AND A/OX4. VENT DEPENDENT. NO SOB NOTED. NOT IN DISTRESS. WITH NO COMPLAINTS OF PAIN OR DISCOMFORT AT THIS TIME. WITH G-TUBE IN PLACED. ON TELE MONITOR CURRENTLY READING SR WITH PVC'S. WITH FRITZ CATHETER IN PLACED DRAINING CLEAR, YOBANY URINE. SAFETY MEASURES IN PLACED. CALL LIGHT WITHIN REACH. BED ON LOWEST LOCKED POSITION, SIDE RAILS UP X2. WILL CONTINUE TO MONITOR.
[2021-03-09 08:19] VITALS: BP 130/81
[2021-03-09] MEDS ORDERED: Medication Not On Formulary EA (Omega-3 Fatty Acids/Fish Oil (Fish Oil 1,000 Mg Capsule) GT SCH (09:00)
[2021-03-09] MEDS: LEVETIRACETAM SOL (5 ML) 100 MG/ML UDC GT SCH ×2 (09:25→16:28)
[2021-03-09] MEDS: CHLORHEXIDINE GLUCONATE 15 ML UDC MM SCH ×2 (09:25→16:28)
[2021-03-09] MEDS: ASCORBIC ACID 500 MG TABLET GT SCH (09:25)
[2021-03-09] MEDS: LACTULOSE 10 G/15 ML UDC (PYXIS) GT SCH (09:25)
[2021-03-09] MEDS: ASPIRIN 81 MG TAB.CHEW GT SCH (09:26)
[2021-03-09] MEDS: ACIDOPHILUS/BULGARICUS 1 EACH TAB.CHEW GT SCH (09:26)
[2021-03-09] MEDS: LISINOPRIL (5MG) 5 MG TABLET GT SCH (09:26)
[2021-03-09] MEDS: MULTIVIT W/MINERALS 1 TAB TABLET GT SCH (09:26)
[2021-03-09] MEDS: MAGNESIUM OXIDE 400 MG TABLET GT SCH (09:27)
[2021-03-09] MEDS: AMIODARONE HCL 200 MG TABLET GT SCH ×2 (09:27→16:31)
[2021-03-09] MEDS: METOPROLOL TARTRATE 50 MG TABLET GT SCH ×2 (09:27→16:31)
[2021-03-09] MEDS: BROMOCRIPTINE MESYLATE (2.5MG) 2.5 MG TABLET GT SCH ×3 (09:28→16:33)
[2021-03-09] MEDS: DOCUSATE SODIUM 100 MG CAPSULE PO SCH ×2 (09:28→16:28)
[2021-03-09] MEDS: PANTOPRAZOLE 40 MG/PACK PACK GT SCH (09:29)
[2021-03-09] MEDS: NICOTINE PATCH (14MG) 14 MG PATCH.TD24 TD SCH (09:29)
[2021-03-09] MEDS: PROSTAT (PYXIS) 30 ML UDC GT SCH (09:32)
[2021-03-09 12:02] VITALS: BP 119/69
[2021-03-09 13:04] LABS: CALCIUM, SERUM 8.2 mg/dL (8.5-10.1); CREATININE 0.6 mg/dL (0.6-1.3); MAGNESIUM 1.9 mg/dL (1.8-2.4)
[2021-03-09] MEDS ORDERED: GLUCERNA 1.2 1,000 ML BOTTLE GT PRN (15:00)
[2021-03-09] MEDS ORDERED: NEUTRA PHOS 1 POWD.PACKET GT ONE (15:30)
[2021-03-09 16:05] VITALS: BP 110/52
[2021-03-09] MEDS ORDERED: POLYVINYL ALCOHOL 15 ML BOTTLE EACHEYE PRN (18:00)
--- NOTE | 2021-03-09 18:41 | NUR ---
PERSONNEL SCHEDULER CLOSING NOTES PATIENT ON BED AWAKE AND A/OX4. VENT DEPENDENT. NO SOB NOTED. NOT IN DISTRESS. ABLE TO MAKE NEEDS KNOWN. WITH NO COMPLAINTS OF PAIN OR DISCOMFORT AT THIS TIME. WITH G-TUBE IN PLACED. ON TELE MONITOR CURRENTLY READING SR WITH PVC'S AT 69BPM. WITH FRITZ CATHETER IN PLACED DRAINING CLEAR, YOBANY URINE. SAFETY MEASURES IN PLACED. CALL LIGHT WITHIN REACH. BED ON LOWEST LOCKED POSITION, SIDE RAILS UP X2. WILL ENDORSE TO NEXT SHIFT FOR MYRANDA.
--- NOTE | 2021-03-09 19:30 | NUR ---
SUPERVISOR GROWER OPENING NOTE RECEIVED PATIENT IN BED. A/OX4. NO S/S OF APPARENT DISTRESS-- VENT DEPENDENT. DENIES PAIN AT THIS TIME. TELE MONITOR READING TRIGEMINY/ PVC SR 66. NEEDS ATTENDED AT THE MOMENT. R.FA IV ACCESS FLUSHED-- INTACT AND PATENT-- NO FLUIDS RUNNING AT THIS TIME. G-TUBE RUNNING GLUCERNA @65CC/HR. SAFETY IN PLACE. WILL CONTINUE TO MONITOR AND FOLLOW THROUGH PATIENT CARE PLAN.
[2021-03-09 20:00] VITALS: BP 112/94
[2021-03-09] MEDS: ATORVASTATIN 40 MG TABLET GT SCH (21:42)
[2021-03-09] MEDS: QUETIAPINE FUMARATE 25 MG TABLET GT SCH (21:43)
[2021-03-09] MEDS: SENNOSIDES 8.6 MG TABLET GT SCH (21:43)
[2021-03-10] VITALS: BP 100/48
--- NOTE | 2021-03-10 02:23 | NUR ---
LINK TRAINER TEACHER NOTE REPORT GIVEN TO PARI FOR CONTINUITY OF CARE.
--- NOTE | 2021-03-10 02:25 | NUR ---
sales service coordinator opening notes Received Pt from ESSIE Bentley. Pt is laying in bed comfortably watching TV. Pt is alert and orientedX4 and able to make needs known. Pt is on [facility].vent with O2 saturation 100%. No SOB. No S/S of distress noted. Tele monitor showed SR with trigeminy hr at 76. RFA# 20 is clean,intact and SL. norwood cath is intact and draining yellow urine. Safety precautions is maintained. Bed at low position, brakes locked, hob elevated, side rails upX3 and call light is within reach. Will continue to monitor. Addendum: 03/10/21 at 0234 by PARI LEWIS RN Gtube feeding is intact and running glucerna @ 90ml/hr.
[2021-03-10] MEDS: MORPHINE SULFATE INJ 2 MG/ML DISP.SYRIN IV PRN ×2 (02:40→13:42)
--- NOTE | 2021-03-10 02:40 | NUR ---
RN notes Pt is complaining of pain on his rib cage 10/10 on pain scale and requesting pain meds. administered morphine 1 mg/iv push/prn as ordered. Vs is stable. Safety precautions is maintained. Will continue to monitor.
[2021-03-10 04:00] VITALS: BP 127/92
[2021-03-10] MEDS: oxyCODONE IR immediate release 5 MG GT PRN (04:26)
--- NOTE | 2021-03-10 04:27 | NUR ---
RN notes Pt is complaining pain on his rib cage and requesting pain meds. Administered Oxy Ir 5mg/gtube/prn as ordered for pain. VS is stable. Safety precautions is maintained. Will continue to monitor.
--- NOTE | 2021-03-10 06:30 | NUR ---
mechanic and welder closing notes Pt is laying in bed comfortably watching TV. Pt is alert and orientedX4 and able to make needs known. Pt is on mec.vent with O2 saturation 100%. No SOB. No S/S of distress noted. Tele monitor showed SR with trigeminy hr at 77. RFA# 20 is clean,intact and SL. Gtube feeding is intact and running glucerna @ 90 ml/hr. norwood cath is intact and draining yellow urine. Safety precautions is maintained. Bed at low position, brakes locked, hob elevated, side rails upX3 and call light is within reach. Will endorse to am nurse for MYRANDA.
--- NOTE | 2021-03-10 07:30 | NUR ---
RN OCCUPATIONAL HEALTH OPENING NOTES RECEIVED PATIENT AWAKE IN BED IN NO ACUTE SIGNS OF DISTRESS. HOB ELEVATED. PT IS A/O X4. ABLE TO MAKE NEEDS KNOWN, NO COMPLAINTS OF PAIN OR DISCOMFORTS AT THIS TIME. PT WITH TRACH PORTEX # 7 [facility] AT PRESCRIBED SETTINGS, TOLERATING SETTINGS WELL WITH NO SOB NOTED. G-TUBE IN PLACED WITH FEEDING OF GLUCERNA 1.2 @ 90ML/HR IN PROGRESS, TOLERATING WELL. ASPIRATION PRECAUTIONS MAINTAINED. CURRENT TELE MONITOR READING SHOWS NSR WITH TRIGEMINY, HR 75, NI C/O CARDIAC DISTRESS VOICED. FRITZ CATHETER IN PLACED DRAINING CLEAR YELLOW URINE VIA GRAVITY. SAFETY MEASURES IN PLACED: CALL LIGHT WITHIN REACH. BED AT LOWEST LOCKED POSITION, SIDE RAILS UP X2. WILL CONTINUE TO MONITOR.
[2021-03-10 08:00] VITALS: BP 119/63
[2021-03-10] MEDS: ACIDOPHILUS/BULGARICUS 1 EACH TAB.CHEW GT SCH (08:45)
[2021-03-10] MEDS: AMIODARONE HCL 200 MG TABLET GT SCH ×2 (08:45→16:31)
[2021-03-10] MEDS: ASCORBIC ACID 500 MG TABLET GT SCH (08:45)
[2021-03-10] MEDS: LACTULOSE 10 G/15 ML UDC (PYXIS) GT SCH (08:45)
[2021-03-10] MEDS: LEVETIRACETAM SOL (5 ML) 100 MG/ML UDC GT SCH ×2 (08:45→16:31)
[2021-03-10] MEDS: DOCUSATE SODIUM 100 MG CAPSULE PO SCH ×2 (08:46→16:31)
[2021-03-10] MEDS: ASPIRIN 81 MG TAB.CHEW GT SCH (08:46)
[2021-03-10] MEDS: PANTOPRAZOLE 40 MG/PACK PACK GT SCH (08:46)
[2021-03-10] MEDS: CHLORHEXIDINE GLUCONATE 15 ML UDC MM SCH ×2 (08:46→16:32)
[2021-03-10] MEDS: MULTIVIT W/MINERALS 1 TAB TABLET GT SCH (08:46)
[2021-03-10] MEDS: NICOTINE PATCH (14MG) 14 MG PATCH.TD24 TD SCH (08:46)
[2021-03-10] MEDS: MAGNESIUM OXIDE 400 MG TABLET GT SCH (08:47)
[2021-03-10] MEDS: LISINOPRIL (5MG) 5 MG TABLET GT SCH (08:47)
[2021-03-10] MEDS: METOPROLOL TARTRATE 50 MG TABLET GT SCH ×2 (08:47→16:31)
[2021-03-10] MEDS: BROMOCRIPTINE MESYLATE (2.5MG) 2.5 MG TABLET GT SCH ×3 (08:58→16:32)
[2021-03-10] MEDS: PROSTAT (PYXIS) 30 ML UDC GT SCH (09:00)
[2021-03-10] MEDS ORDERED: PROSOURCE / PROSTAT (PYXIS) 30 ML UDC GT SCH (09:30)
[2021-03-10 12:00] VITALS: BP 117/63
[2021-03-10] MEDS ORDERED: NEUTRA PHOS 1 POWD.PACKET GT ONE (13:00)
--- NOTE | 2021-03-10 13:44 | NUR ---
RN NOTES PT C/O GENERALIZED PAIN AND PAIN MOSTLY ON HIS RIB CAGE, 8/10 SCALE. PRN MORPHINE 1 MG/0.5ML IVP ADMINISTERED AT 1342. WILL CONTINUE TO MONITOR AND REASSESS PT.
[2021-03-10] MEDS ORDERED: MUPI22OI7 NS (14:45)
[2021-03-10 16:00] VITALS: BP 130/74
--- NOTE | 2021-03-10 16:30 | NUR ---
RN NOTES CALLED [facility], SPOKED TO KRISTIAN RN AND ESSIE PINK. THEY STATED THAT THEY NEED INQUIRY AND CLEARANCE BEFORE ADMITTING PT. PT'S DISCHARGED PAPERS, [facility], [facility]. FAXED TO THEM AND CALLED THEM AFTER 10 MINUTES, SPOKED TO JOESPH AND SHE SAID IT'S OK FOR PT TO TRANSFERRED TO THEIR FACILITY. .
[2021-03-10 16:31] VITALS: BP 130/71
--- NOTE | 2021-03-10 17:45 | NUR ---
RN DISCHARGED NOTES PT [facility] TO [facility] IN ST[facility]. PT S A/O X4. ABLE TO MAKE NEEDS KNOWN WITH TRACH PORTEX # 7 CONNECTED TO MECH VENT AT PRESCRIBED SETTINGS OF AC 16, TV 600, FI02 40% AND PEEP 5, TOLERATING SETTINGS WELL WITH NO SOB NOTED. V/S TAKEN, STABLE AND RECORDED. SKIN IS INTACT WITH NO SKIN ISSUES NOTED. G-TUBE IN PLACED AND PATENT. FRITZ CATHETER IN PLACED DRAINING CLEAR YELLOW URINE VIA GRAVITY. HEALTH TEACHINGS GIVEN TO PT AND LEONARDO AT BEDSIDE, BOTH VERBALIZED UNDERSTANDING. CALLED AND REPORT GIVEN TO ESSIE PINK [facility]. PT LEFT UNIT VIA GURNEY AT 1740 VIA GURNEY ACCOMPANIED BY 3 SCREW MACHINE TENDER' FROM [facility]. CHARGE NURSE AWARE OF DISCHARGE.
[2021-03-10] MEDS ORDERED: MUPIROCIN OINT 2% 22 GM TUBE NS SCH (21:00)
== END 2021-03-10 17:35 | DRG 208 ==
LOC: ER 08:18 → TELE 17:44
PROVIDERS: ADMIT Nurse Practitioner Acute Care; ATTEND Nurse Practitioner Acute Care
PROC: 5A1945Z Respiratory Ventilation, 24-96 Consecutive Hours (ICD-10-PCS; principal; 2021-03-08)
DX: R07.81 Pleurodynia (principal); I21.4 Non-ST elevation (NSTEMI) myocardial infarction; E43 Unspecified severe protein-calorie malnutrition; J96.10 Chronic respiratory failure, unspecified whether with hypoxia or hypercapnia; Z99.11 Dependence on respirator [ventilator] status; I69.354 Hemiplegia and hemiparesis following cerebral infarction affecting left non-dominant side; J90 Pleural effusion, not elsewhere classified; D68.59 Other primary thrombophilia; I42.9 Cardiomyopathy, unspecified; Z20.822 Contact with and (suspected) exposure to COVID-19; E78.5 Hyperlipidemia, unspecified; I10 Essential (primary) hypertension; K21.9 Gastro-esophageal reflux disease without esophagitis; E11.40 Type 2 diabetes mellitus with diabetic neuropathy, unspecified; F29 Unspecified psychosis not due to a substance or known physiological condition; Z95.828 Presence of other vascular implants and grafts; Z89.422 Acquired absence of other left toe(s); Z79.84 Long term (current) use of oral hypoglycemic drugs; Z86.711 Personal history of pulmonary embolism; Z91.040 Latex allergy status; Z91.048 Other nonmedicinal substance allergy status; Z79.4 Long term (current) use of insulin; Z79.01 Long term (current) use of anticoagulants; Z79.899 Other long term (current) drug therapy; Z79.82 Long term (current) use of aspirin; Z79.51 Long term (current) use of inhaled steroids; R13.10 Dysphagia, unspecified; Z93.0 Tracheostomy status; Z93.1 Gastrostomy status; Z87.891 Personal history of nicotine dependence; G20 Parkinson's disease; G40.909 Epilepsy, unspecified, not intractable, without status epilepticus; I25.2 Old myocardial infarction; J44.9 Chronic obstructive pulmonary disease, unspecified; Z74.01 Bed confinement status; Z86.74 Personal history of sudden cardiac arrest; Z74.09 Other reduced mobility
CPT/HCPCS: 31720; 36415; 71045-TC; 71111-TC; 71250-TC; 80048-TC; 80076-TC; 83735-TC; 83880; 84100-TC; 84484-TC; 85025-TC; 87081-TC; 94003-TC; 94799-TC; C9803; G0378; J1953; J2270

== ENCOUNTER 2022-06-13 22:20 | Emergency (ER) | payer MEDICARE, OTHER ==
[~2022-06-13] VITALS: Ht 175.3 cm; Wt 81.6 kg
[~2022-06-13 22:20] MED LIST changes: +MUPI22OI7 NS
--- NOTE | 2022-06-13 22:48 | NUR ---
DR STARK AT BEDSIDE
[2022-06-13] MEDS ORDERED: LIDOCAINE VISCOUS 2% UD 15 ML UDC ONE (22:51)
[2022-06-13] MEDS ORDERED: MAG HYDROX/AL HYDROX/SIMETH 30 ML UDC ONE (22:51)
[2022-06-13] MEDS ORDERED: ONDANSETRON 4 MG TAB.RAPDIS ONE (22:52)
[2022-06-13] MEDS ORDERED: DIATR MEGLU/DIATRIZOATE SODIUM 30 ML BOTTLE (GASTROGRAPHIN) ONE (23:14)
--- NOTE | 2022-06-13 23:33 | NUR ---
PT IN BED 12, A/O X4 BREATHING EVEN AND UNLABORED ON ROOM AIR. C/O NAUSEA FOR MULTIPLE DAYS RECENT ER VISIT FOR BRADYCCARDIA. PT HAS A G TUBE, AND HX OF STROKE. IN BED [facility]IDE [facility] LOCK[facility] IN LOWEST POSITION
[2022-06-13] MEDS ORDERED: ONDANSETRON HCL/PF 4 MG/2 ML VIAL ONE (23:53)
[2022-06-13] MEDS: IV NS 0.9% 500 ML BAG IV ONE (23:58)
[2022-06-13] MEDS: ONDANSETRON HCL/PF 4 MG/2 ML VIAL IVP ONE (23:58)
[2022-06-14 00:42] LABS: CALCIUM, SERUM 9.1 mg/dL (8.5-10.1); CARBON DIOXIDE 28 mmol/L (21-32); CHLORIDE 108 mmol/L (98-107); CREATININE 0.5 mg/dL (0.6-1.3); GLUCOSE 70 mg/dL (74-106); POTASSIUM 3.6 mmol/L (3.5-5.1); SODIUM SERUM 141 mmol/L (136-145); UREA NITROGEN, BLOOD 23 mg/dL (7-18)
[2022-06-14 00:48] LABS: ALANINE AMINOTRANSFERASE 33 U/L (12-78); ALBUMIN 2.9 g/dL (3.4-5.0); ALKALINE PHOSPHATASE 91 U/L (46-116); ASPARTATE AMINOTRANSFERASE 26 U/L (15-37); BILIRUBIN,DIRECT 0.1 mg/dL (0.0-0.2); BILIRUBIN,TOTAL 0.5 mg/dL (0.2-1.0); LIPASE 110 U/L (73-393); TOTAL PROTEIN, SERUM 6.7 g/dL (6.4-8.2)
[2022-06-14 00:53] LABS: BASOPHILS % (AUTO) 0.5 % (0.0-2.0); EOSINOPHILS % (AUTO) 2.7 % (0.0-6.0); HEMATOCRIT 38 % (39-51); LYMPHOCYTES # (AUTO) 2.2 K/uL (0.8-4.8); LYMPHOCYTES % (AUTO) 26.5 % (20.0-44.0); MEAN CORPUSCULAR HGB CONC 34 g/dl (31.0-36.0); MEAN CORPUSCULAR VOLUME 89 fL (80-96); MONOCYTES # (AUTO) 0.4 K/uL (0.1-1.30); MONOCYTES % (AUTO) 5.2 % (2.0-12.0); NEUTROPHILS # (AUTO) 5.3 K/uL (1.8-8.9); NEUTROPHILS % (AUTO) 65.1 % (43.0-81.0); PLATELET COUNT (AUTO) 209 K/uL (150-450); RED BLOOD CELL COUNT(AUTO) 4.32 MIL/uL (4.5-6.0); WHITE BLOOD COUNT (AUTO) 8.2 K/uL (4.3-11.0)
--- NOTE | 2022-06-14 01:40 | NUR ---
CONE TREATER AT PT'S BEDSIDE
[2022-06-14] MEDS ORDERED: ACETAMINOPHEN 325 MG TABLET ONE (01:41)
[2022-06-14] MEDS: ACETAMINOPHEN 325 MG TABLET PO ONE (01:52)
--- NOTE | 2022-06-14 02:38 | NUR ---
[facility] CALLED FOR BLS GOING BACK TO SNF ETA 30 MIN
--- NOTE | 2022-06-14 03:13 | NUR ---
IV MELODY REMOVED
--- NOTE | 2022-06-14 03:14 | NUR ---
REPORT GIVEN TO [facility]. TRIED CALLING FACILITY TO GIVE REPORT, NOBODY PICKING UP. [facility] CREW MADE AWARE
--- NOTE | 2022-06-14 03:14 | NUR ---
Patient discharged to home in stable condition. Written and verbal after care instructions given. Patient verbalizes understanding of instruction.
[2022-06-14 03:15] VITALS: BP 104/64
== END 2022-06-14 03:15 ==
LOC: ER 22:24
DX: R11.2 Nausea with vomiting, unspecified (principal); I10 Essential (primary) hypertension; E78.5 Hyperlipidemia, unspecified; E11.9 Type 2 diabetes mellitus without complications; K21.9 Gastro-esophageal reflux disease without esophagitis; Z88.8 Allergy status to other drugs, medicaments and biological substances; Z79.899 Other long term (current) drug therapy
CPT/HCPCS: 99285; 96374; 71045; 93005; 74018; 85025; 80048; 83690; 80076; 36415 ×2; 84484 ×2; 85730; J2405; J7040; Q9963; Q0162

== ENCOUNTER 2023-05-24 22:00 | Inpatient (IN) | payer MEDICARE, OTHER ==
[~2023-05-24] VITALS: Ht 175.3 cm; Wt 73.0 kg
[~2023-05-24 22:00] MED LIST changes: +POTA20TA83 GT
[2023-05-24] MEDS ORDERED: AMIO200T5 GT (22:37)
[2023-05-24] MEDS ORDERED: LORA-259 GT (22:37)
[2023-05-24] MEDS ORDERED: MAGN400T26 GT (23:02)
[2023-05-24] MEDS ORDERED: OMEP20CA15 GT (23:02)
[2023-05-24] MEDS ORDERED: ACET-2605 GT (23:02)
[2023-05-24] MEDS ORDERED: ESCI10TA GT (23:02)
[2023-05-24] MEDS ORDERED: QUET25TA GT (23:02)
[2023-05-24] MEDS ORDERED: DOCU100C36 GT (23:02)
[2023-05-24] MEDS ORDERED: LEVE250T2 GT (23:02)
[2023-05-24] MEDS ORDERED: METF-440 GT (23:02)
[2023-05-24] MEDS ORDERED: ACET325T53 GT (23:02)
[2023-05-24] MEDS ORDERED: INSU3INS8 SQ (23:02)
[2023-05-24] MEDS ORDERED: ESCI20TA GT (23:02)
[2023-05-24] MEDS ORDERED: SPIR25TA6 GT (23:02)
[2023-05-24] MEDS ORDERED: BUPR100T6 GT (23:02)
[2023-05-24] MEDS ORDERED: OXYC5CAP18 GT (23:02)
[2023-05-24] MEDS ORDERED: DIPH-530 GT (23:02)
[2023-05-24] MEDS ORDERED: MORPHINE SULFATE INJ 2 MG/ML DISP.SYRIN ONE (23:30)
[2023-05-24] MEDS: MORPHINE SULFATE INJ 2 MG/ML DISP.SYRIN IV ONE (23:31)
[2023-05-24 23:32] LABS: BASOPHILS # (AUTO) 0.1 K/uL (0.0-0.2); BASOPHILS % (AUTO) 0.6 % (0.0-2.0); EOSINOPHILS # (AUTO) 0.2 K/uL (0.0-0.7); HEMATOCRIT 32 % (39-51); HEMOGLOBIN 10.7 g/dL (13.5-17.5); LYMPHOCYTES # (AUTO) 0.6 K/uL (0.8-4.8); LYMPHOCYTES % (AUTO) 4.1 % (20.0-44.0); MEAN CORPUSCULAR HEMOGLOBIN 31 PG (26.0-33.0); MEAN CORPUSCULAR HGB CONC 33 g/dl (31.0-36.0); MEAN CORPUSCULAR VOLUME 95 fL (80-96); MONOCYTES # (AUTO) 0.8 K/uL (0.1-1.30); MONOCYTES % (AUTO) 5.2 % (2.0-12.0); NEUTROPHILS # (AUTO) 13.4 K/uL (1.8-8.9); NEUTROPHILS % (AUTO) 89.1 % (43.0-81.0); PLATELET COUNT (AUTO) 219 K/uL (150-450); RED CELL DISTRIBUTION WIDTH 15.3 % (11.5-15.0)
[2023-05-24 23:46] LABS: CALCIUM, SERUM 8.3 mg/dL (8.5-10.1); CARBON DIOXIDE 27 mmol/L (21-32); CHLORIDE 103 mmol/L (98-107); CREATININE 0.9 mg/dL (0.6-1.3); GLUCOSE 113 mg/dL (74-106); POTASSIUM 3.3 mmol/L (3.5-5.1); SODIUM SERUM 136 mmol/L (136-145); UREA NITROGEN, BLOOD 17 mg/dL (7-18)
[2023-05-24 23:58] LABS: LACTIC ACID 2.2 mmol/L (0.4-2.0)
[2023-05-25] VITALS (12 sets, daily range): BP systolic 108–137; BP diastolic 58–91; TEMP 97.7–99.5; O2SAT 95–100
[2023-05-25 00:06] LABS: ALANINE AMINOTRANSFERASE 35 U/L (12-78); ALKALINE PHOSPHATASE 119 U/L (46-116); ASPARTATE AMINOTRANSFERASE 27 U/L (15-37); BILIRUBIN,TOTAL 0.6 mg/dL (0.2-1.0); NT-PRO BNP 10792 pg/mL (0-125); TOTAL PROTEIN, SERUM 5.9 g/dL (6.4-8.2)
[2023-05-25] MEDS ORDERED: CEFTRIAXONE 1GM BAG (ER ONLY) 50 ML IV ONE (00:12)
[2023-05-25] MEDS ORDERED: FUROSEMIDE 40 MG/4 ML VIAL ONE (00:12)
[2023-05-25] MEDS: FUROSEMIDE 40 MG/4 ML VIAL IV ONE (00:12)
[2023-05-25] MEDS: CEFTRIAXONE 1 G in IV D5W 50 ML IV ONE (00:12)
[2023-05-25] MEDS ORDERED: GLUCERNA 1.5 1,000 ML BOTTLE GT SCH (01:00)
[2023-05-25] MEDS ORDERED: MAGNESIUM HYDROXIDE 30 ML UDC PO PRN (01:00)
[2023-05-25] MEDS ORDERED: ACETAMINOPHEN 325 MG TABLET PO PRN (01:00)
[2023-05-25] MEDS ORDERED: MAG HYDROX/AL HYDROX/SIMETH 30 ML UDC PO PRN (01:00)
[2023-05-25] MEDS ORDERED: ONDANSETRON HCL/PF 4 MG/2 ML VIAL IVP PRN (01:00)
[2023-05-25] MEDS ORDERED: ZOLPIDEM TARTRATE 5 MG TABLET PO PRN (01:00)
[2023-05-25] MEDS: VANCOMYCIN 1 GM /D5W 250 ML PB IV ONE (02:35)
[2023-05-25] MEDS ORDERED: GLUCERNA 1.5 1,000 ML BOTTLE GT PRN (03:00)
[2023-05-25] MEDS: GLUCERNA 1.2 1,000 ML BOTTLE GT PRN (03:01)
[2023-05-25] MEDS ORDERED: VANCOMYCIN 500 MG VIAL ONE (03:07)
[2023-05-25] MEDS: VANCOMYCIN HCL 1.25 GM in IV D5W 250 ML IV ONE (03:09)
[2023-05-25] MEDS ORDERED: IPRATROPIUM BROMIDE 14 GM INHALER (or 12.9 GM) IH PRN (03:30)
[2023-05-25] MEDS ORDERED: DEXTROSE 50%-WATER 50 ML DISP.SYRIN IV PRN (05:30)
[2023-05-25] MEDS ORDERED: IPRATROPIUM NEB FS 0.5 MG/2.5 ML AMPUL.NEB NEB PRN (07:00)
[2023-05-25] MEDS: BLOOD SUGAR DIAGNOSTIC 1 EACH STRIP IN SCH (07:28)
[2023-05-25] MEDS ORDERED: IPRATROPIUM BROMIDE 14 GM INHALER (or 12.9 GM) IH SCH (07:35)
[2023-05-25] MEDS: LEVETIRACETAM SOL (5 ML) 100 MG/ML UDC GT SCH (08:39)
[2023-05-25] MEDS: buPROPion 75 MG TABLET PO SCH (08:39)
[2023-05-25] MEDS: LACTULOSE 10 G/15 ML UDC (PYXIS) GT SCH (08:39)
[2023-05-25] MEDS: MAGNESIUM OXIDE 400 MG TABLET GT SCH (08:39)
[2023-05-25] MEDS: QUETIAPINE FUMARATE 25 MG TABLET GT SCH (08:39)
[2023-05-25] MEDS: ASCORBIC ACID 500 MG TABLET GT SCH (08:39)
[2023-05-25] MEDS: ASPIRIN 81 MG TAB.CHEW GT SCH (08:39)
[2023-05-25] MEDS: DOCUSATE SODIUM 100 MG CAPSULE PO SCH (08:39)
[2023-05-25] MEDS: PANTOPRAZOLE 40 MG/PACK PACK GT SCH (08:39)
[2023-05-25] MEDS: ESCITALOPRAM OXALATE (10 MG) 10 MG TABLET GT SCH (08:39)
[2023-05-25] MEDS: AMIODARONE HCL 200 MG TABLET GT SCH (08:40)
[2023-05-25] MEDS: LISINOPRIL (5MG) 5 MG TABLET GT SCH (08:40)
[2023-05-25] MEDS: METOPROLOL TARTRATE 50 MG TABLET GT SCH (08:41)
[2023-05-25] MEDS: CHLORHEXIDINE GLUCONATE 15 ML UDC MM SCH (08:41)
[2023-05-25] MEDS: BROMOCRIPTINE MESYLATE (2.5MG) 2.5 MG TABLET GT SCH (08:42)
[2023-05-25] MEDS: PROSOURCE / PROSTAT (PYXIS) 30 ML UDC GT SCH (08:44)
[2023-05-25] MEDS: IPRATROPIUM NEB FS 0.5 MG/2.5 ML AMPUL.NEB NEB SCH (08:50)
[2023-05-25] MEDS ORDERED: buPROPion SR 100 MG TABLET.ER PO SCH (09:00)
[2023-05-25] MEDS ORDERED: DIPH25TA62 GT (09:01)
[2023-05-25] MEDS ORDERED: CYCL30DR EACHEYE (09:01)
[2023-05-25] MEDS ORDERED: OXYC5TAB3 GT (09:01)
[2023-05-25] MEDS ORDERED: INSU100I26 SQ ×2 (09:01)
[2023-05-25] MEDS ORDERED: INSU100I47 SQ (09:01)
[2023-05-25] MEDS ORDERED: IPRA4AER IH ×2 (09:01)
[2023-05-25] MEDS ORDERED: LEVE500S9 GT (09:01)
[2023-05-25] MEDS ORDERED: OMEG1600 GT (09:01)
[2023-05-25] MEDS ORDERED: CHOL500062 PO (09:01)
[2023-05-25] MEDS ORDERED: BUPR75TA21 GT (09:01)
[2023-05-25] MEDS ORDERED: CHLO473M5 PO (09:01)
[2023-05-25] MEDS: POTASSIUM CHLORIDE 20 MEQ TAB.PRT.SR PO SCH (09:14)
[2023-05-25] MEDS: FUROSEMIDE 40 MG/4 ML VIAL IV SCH (09:15)
[2023-05-25] MEDS: VANCOMYCIN HCL 1.25 GM in IV D5W 250 ML IV SCH (14:41)
[2023-05-25 15:30] LABS: CALCIUM, SERUM 7.9 mg/dL (8.5-10.1); CREATININE 0.8 mg/dL (0.6-1.3); POTASSIUM 3.5 mmol/L (3.5-5.1)
[2023-05-25 15:37] LABS: ALBUMIN 1.9 g/dL (3.4-5.0); BILIRUBIN,TOTAL 0.7 mg/dL (0.2-1.0)
[2023-05-25] MEDS: MORPHINE SULFATE INJ 2 MG/ML DISP.SYRIN IV PRN (16:43)
[2023-05-25] MEDS: ATORVASTATIN 40 MG TABLET GT SCH (21:13)
[2023-05-25] MEDS: SENNOSIDES 8.6 MG TABLET GT SCH (21:13)
[2023-05-26] VITALS (15 sets, daily range): BP systolic 92–117; BP diastolic 56–75; TEMP 97.5–98.8; O2SAT 95–100
[2023-05-26 00:35] LABS: APPEARANCE,URINE CLEAR (CLEAR); BILIRUBIN,URINE NEGATIVE (NEGATIVE); BLOOD, URINE 1+ Ery/uL (NEGATIVE); COLOR,URINE YELLOW (YELLOW); KETONES,URINE NEGATIVE (NEGATIVE); LEUKOCYTE ESTERASE ,URINE NEGATIVE (NEGATIVE); NITRITE, URINE NEGATIVE (NEGATIVE); PH,URINE 5.5 (5.0-8.0); PROTEIN,URINE NEGATIVE (NEGATIVE); UGLUCOSE NEGATIVE (NEGATIVE); UROBILINOGEN,URINE 0.2 EU/dL (0.2)
[2023-05-26 00:42] LABS: ADD URINE CULTURE NO; BACTERIA,URINE None seen /HPF (None Seen); SQUAMOUS EPITHELIAL CELL,UR Few /HPF (None Seen); WBC,URINE 0-2 /HPF (0-3)
[2023-05-26] MEDS ORDERED: MAGNESIUM HYDROXIDE 30 ML UDC GT PRN (06:47)
[2023-05-26] MEDS ORDERED: MAG HYDROX/AL HYDROX/SIMETH 30 ML UDC GT PRN (06:47)
[2023-05-26] MEDS ORDERED: ACETAMINOPHEN 650 MG/20.3 ML UDC GT PRN (07:00)
[2023-05-26] MEDS ORDERED: POTASSIUM CHLORIDE 20 MEQ TAB.PRT.SR PO SCH (08:00)
[2023-05-26] MEDS: CEFTRIAXONE 1 G in IV D5W 50 ML IV SCH (09:07)
[2023-05-26] MEDS: FUROSEMIDE 40 MG/4 ML VIAL IV SCH (09:07)
[2023-05-26] MEDS: DOCUSATE SODIUM LIQ 100 MG/10 ML UDC GT SCH (09:50)
[2023-05-26] MEDS: buPROPion 75 MG TABLET GT SCH ×2 (09:51→18:34)
[2023-05-26] MEDS: POTASSIUM CHLORIDE 20 MEQ POWDER PACKET PO SCH (10:28)
[2023-05-26] MEDS: ENOXAPARIN SODIUM 40 MG/0.4 ML DISP.SYRIN SQ SCH (16:15)
[2023-05-26] MEDS: CLOTRIMAZOLE/BETAMETASONE DIPROPIONATE 15 GM TUBE TP SCH (18:32)
[2023-05-26] MEDS: CHLORHEXIDINE GLUCONATE 15 ML UDC MM SCH (18:35)
[2023-05-26] MEDS: MORPHINE SULFATE INJ 2 MG/ML DISP.SYRIN IV PRN (19:52)
[2023-05-26] MEDS: LEVETIRACETAM SOL (5 ML) 100 MG/ML UDC GT SCH (21:00)
[2023-05-26] MEDS: ZOLPIDEM TARTRATE 5 MG TABLET GT PRN (22:05)
[2023-05-27] VITALS (15 sets, daily range): BP systolic 90–108; BP diastolic 57–70; TEMP 97.8–99.1; O2SAT 93–100
[2023-05-27] MEDS ORDERED: CHLORHEXIDINE GLUCONATE 4% 118 ML BOTTLE TP SCH (01:00)
[2023-05-27] MEDS ORDERED: MAGNESIUM HYDROXIDE 30 ML UDC PO PRN (08:00)
[2023-05-27] MEDS ORDERED: ACETAMINOPHEN 650 MG/20.3 ML UDC PO PRN (08:00)
[2023-05-27] MEDS ORDERED: LEVETIRACETAM SOL (5 ML) 100 MG/ML UDC PO SCH (09:00)
[2023-05-27] MEDS ORDERED: buPROPion 75 MG TABLET PO SCH (09:00)
[2023-05-27] MEDS: BROMOCRIPTINE MESYLATE (2.5MG) 2.5 MG TABLET PO SCH (10:22)
[2023-05-27] MEDS: Z GUARD REMEDY 4 OZ OINT TP PRN (10:22)
[2023-05-27] MEDS: PROSOURCE / PROSTAT (PYXIS) 30 ML UDC PO SCH (10:23)
[2023-05-27] MEDS: CHOLECALCIFEROL 1,000 UNIT TABLET (VIT D3) PO SCH (10:23)
[2023-05-27] MEDS: DOCUSATE SODIUM LIQ 100 MG/10 ML UDC PO SCH (10:24)
[2023-05-27] MEDS: LACTULOSE 10 G/15 ML UDC (PYXIS) PO SCH (10:24)
[2023-05-27] MEDS: buPROPion 75 MG TABLET PO SCH (10:25)
[2023-05-27] MEDS: MAGNESIUM OXIDE 400 MG TABLET PO SCH (10:25)
[2023-05-27] MEDS: ASCORBIC ACID 500 MG TABLET PO SCH (10:25)
[2023-05-27] MEDS: QUETIAPINE FUMARATE 25 MG TABLET PO SCH (10:26)
[2023-05-27] MEDS: ESCITALOPRAM OXALATE (10 MG) 10 MG TABLET PO SCH (10:26)
[2023-05-27] MEDS: ASPIRIN 81 MG TAB.CHEW PO SCH (10:26)
[2023-05-27] MEDS: PANTOPRAZOLE 40 MG TABLET.DR PO SCH (10:26)
[2023-05-27] MEDS: AMIODARONE HCL 200 MG TABLET PO SCH (10:27)
[2023-05-27] MEDS: LISINOPRIL (5MG) 5 MG TABLET PO SCH (10:28)
[2023-05-27] MEDS: LEVETIRACETAM (250 MG) 250 MG TABLET PO SCH (10:28)
[2023-05-27] MEDS: METOPROLOL TARTRATE 50 MG TABLET PO SCH (10:28)
[2023-05-27] MEDS: INSULIN REGULAR, HUMAN 100 UNIT/ML 3 ML VIAL SQ PRN (12:12)
[2023-05-27] MEDS ORDERED: MAG HYDROX/AL HYDROX/SIMETH 30 ML UDC PO PRN (12:47)
[2023-05-27] MEDS: VANCOMYCIN 1 GM in IV D5W 250ml IV SCH (14:21)
[2023-05-27] MEDS: ATORVASTATIN 40 MG TABLET PO SCH (21:24)
[2023-05-27] MEDS: SENNOSIDES 8.6 MG TABLET PO SCH (21:25)
[2023-05-28] VITALS (11 sets, daily range): BP systolic 95–117; BP diastolic 65–77; TEMP 97.7–98.8; O2SAT 92–99
[2023-05-28 06:15] LABS: CALCIUM, SERUM 7.3 mg/dL (8.5-10.1); CREATININE 0.7 mg/dL (0.6-1.3); MAGNESIUM 1.8 mg/dL (1.8-2.4); PHOSPHORUS 3.5 mg/dL (2.5-4.9)
[2023-05-28 06:24] LABS: POTASSIUM 2.7 mmol/L (3.5-5.1)
[2023-05-28 06:26] LABS: BASOPHILS % (AUTO) 0.5 % (0.0-2.0); EOSINOPHILS # (AUTO) 0.8 K/uL (0.0-0.7); EOSINOPHILS % (AUTO) 9.3 % (0.0-6.0); HEMATOCRIT 32 % (39-51); HEMOGLOBIN 10.7 g/dL (13.5-17.5); LYMPHOCYTES # (AUTO) 0.9 K/uL (0.8-4.8); LYMPHOCYTES % (AUTO) 10.3 % (20.0-44.0); MEAN CORPUSCULAR HEMOGLOBIN 31 PG (26.0-33.0); MEAN CORPUSCULAR HGB CONC 34 g/dl (31.0-36.0); MEAN CORPUSCULAR VOLUME 93 fL (80-96); MONOCYTES # (AUTO) 0.6 K/uL (0.1-1.30); MONOCYTES % (AUTO) 7.3 % (2.0-12.0); NEUTROPHILS # (AUTO) 6.3 K/uL (1.8-8.9); NEUTROPHILS % (AUTO) 72.6 % (43.0-81.0); PLATELET COUNT (AUTO) 241 K/uL (150-450); RED BLOOD CELL COUNT(AUTO) 3.42 MIL/uL (4.5-6.0); WHITE BLOOD COUNT (AUTO) 8.7 K/uL (4.3-11.0)
[2023-05-28] MEDS: GLUCERNA SHAKE 237 ML CAN PO SCH (09:24)
[2023-05-28] MEDS: POTASSIUM CHLORIDE 20 MEQ TAB.PRT.SR PO SCH (10:06)
[2023-05-28] MEDS: PERMETHRIN 5% CRM 60 GM TUBE TP ONE (17:53)
[2023-05-29] VITALS (31 sets, daily range): BP systolic 80–121; BP diastolic 39–71; TEMP 97.4–98; O2SAT 87–100
[2023-05-29 07:55] LABS: BASOPHILS # (AUTO) 0.1 K/uL (0.0-0.2); EOSINOPHILS % (AUTO) 11.1 % (0.0-6.0); HEMATOCRIT 33 % (39-51); HEMOGLOBIN 11.2 g/dL (13.5-17.5); LYMPHOCYTES % (AUTO) 11.1 % (20.0-44.0); MEAN CORPUSCULAR HEMOGLOBIN 32 PG (26.0-33.0); MEAN CORPUSCULAR HGB CONC 34 g/dl (31.0-36.0); MEAN CORPUSCULAR VOLUME 93 fL (80-96); MONOCYTES # (AUTO) 0.7 K/uL (0.1-1.30); MONOCYTES % (AUTO) 7.4 % (2.0-12.0); NEUTROPHILS # (AUTO) 6.4 K/uL (1.8-8.9); NEUTROPHILS % (AUTO) 69.4 % (43.0-81.0); PLATELET COUNT (AUTO) 290 K/uL (150-450); RED BLOOD CELL COUNT(AUTO) 3.55 MIL/uL (4.5-6.0); RED CELL DISTRIBUTION WIDTH 15.3 % (11.5-15.0); WHITE BLOOD COUNT (AUTO) 9.2 K/uL (4.3-11.0)
[2023-05-29 08:36] LABS: ALBUMIN 1.7 g/dL (3.4-5.0); BILIRUBIN,TOTAL 0.5 mg/dL (0.2-1.0); CALCIUM, SERUM 8.1 mg/dL (8.5-10.1); CREATININE 0.7 mg/dL (0.6-1.3); PHOSPHORUS 2.8 mg/dL (2.5-4.9); POTASSIUM 4.1 mmol/L (3.5-5.1); TOTAL PROTEIN, SERUM 5.8 g/dL (6.4-8.2)
[2023-05-29] MEDS: POTASSIUM CHLORIDE 20 MEQ TAB.PRT.SR PO SCH (10:12)
[2023-05-29] MEDS: FUROSEMIDE 40 MG/4 ML VIAL IV SCH (10:12)
[2023-05-29] MEDS: VANCOMYCIN 1 GM in IV D5W 250ml IV SCH (14:14)
[2023-05-29] MEDS ORDERED: ALBUMIN 25% 12.5 GM/50 ML BOTTLE IV STA (17:35)
[2023-05-29] MEDS ORDERED: DoBUTamine 500 MG/250 ML PIGGYBACK IV ONE (18:00)
[2023-05-29] MEDS: BUMETANIDE INJ 8 MG in IV NS 0.9% 48 ML IV ONE (18:56)
[2023-05-29] MEDS: ALBUMIN 25% 25 GM in PREMIX 1 EA IV SCH (18:56)
[2023-05-29] MEDS: DOBUTamine 500 MG in IV D5W 210 ML IV PRN (18:57)
[2023-05-29] MEDS ORDERED: DOBUTamine 500 MG in IV D5W 210 ML IV PRN (19:00)
[2023-05-29] MEDS: ZOLPIDEM TARTRATE 5 MG TABLET PO PRN (21:02)
[2023-05-29 21:42] LABS: CALCIUM, SERUM 8.3 mg/dL (8.5-10.1); CREATININE 0.8 mg/dL (0.6-1.3); MAGNESIUM 1.8 mg/dL (1.8-2.4); PHOSPHORUS 2.8 mg/dL (2.5-4.9)
[2023-05-29] MEDS: acetaZOLAMIDE SODIUM 500 MG/VIAL VIAL IV SCH (23:09)
[2023-05-30] VITALS (96 sets, daily range): BP systolic 79–126; BP diastolic 40–101; TEMP 97.8–98.3; O2SAT 90–99
[2023-05-30 04:16] LABS: BASOPHILS % (AUTO) 0.1 % (0.0-2.0); EOSINOPHILS # (AUTO) 0.6 K/uL (0.0-0.7); EOSINOPHILS % (AUTO) 4.8 % (0.0-6.0); HEMATOCRIT 36 % (39-51); HEMOGLOBIN 11.7 g/dL (13.5-17.5); LYMPHOCYTES # (AUTO) 0.6 K/uL (0.8-4.8); LYMPHOCYTES % (AUTO) 5.2 % (20.0-44.0); MEAN CORPUSCULAR HEMOGLOBIN 30 PG (26.0-33.0); MEAN CORPUSCULAR HGB CONC 32 g/dl (31.0-36.0); MEAN CORPUSCULAR VOLUME 94 fL (80-96); MONOCYTES # (AUTO) 0.5 K/uL (0.1-1.30); MONOCYTES % (AUTO) 3.9 % (2.0-12.0); NEUTROPHILS # (AUTO) 10.6 K/uL (1.8-8.9); PLATELET COUNT (AUTO) 349 K/uL (150-450); RED BLOOD CELL COUNT(AUTO) 3.83 MIL/uL (4.5-6.0); RED CELL DISTRIBUTION WIDTH 15.2 % (11.5-15.0); WHITE BLOOD COUNT (AUTO) 12.3 K/uL (4.3-11.0)
[2023-05-30 04:29] LABS: ALBUMIN 2.2 g/dL (3.4-5.0); BILIRUBIN,TOTAL 0.8 mg/dL (0.2-1.0); CALCIUM, SERUM 8.5 mg/dL (8.5-10.1); CREATININE 0.9 mg/dL (0.6-1.3); MAGNESIUM 1.9 mg/dL (1.8-2.4); PHOSPHORUS 2.8 mg/dL (2.5-4.9); POTASSIUM 3.9 mmol/L (3.5-5.1); TOTAL PROTEIN, SERUM 6.3 g/dL (6.4-8.2)
[2023-05-30 09:35] LABS: CALCIUM, SERUM 8.8 mg/dL (8.5-10.1); CREATININE 0.8 mg/dL (0.6-1.3); MAGNESIUM 2.1 mg/dL (1.8-2.4); PHOSPHORUS 3.1 mg/dL (2.5-4.9); POTASSIUM 3.4 mmol/L (3.5-5.1)
[2023-05-30] MEDS: PIPERACILLIN /TAZOBACTAM 3.375 G in IV D5W 50 ML IV ONE (14:11)
[2023-05-30 16:33] LABS: CALCIUM, SERUM 8.3 mg/dL (8.5-10.1); CREATININE 0.8 mg/dL (0.6-1.3); MAGNESIUM 1.9 mg/dL (1.8-2.4); PHOSPHORUS 3.2 mg/dL (2.5-4.9); POTASSIUM 3.2 mmol/L (3.5-5.1)
[2023-05-30] MEDS: PIPERACILLIN /TAZOBACTAM 3.375 G in IV D5W 100 ML IV SCH (18:00)
[2023-05-30] MEDS: POTASSIUM CHLORIDE 20 MEQ POWDER PACKET GT SCH (18:03)
[2023-05-30 21:59] LABS: CALCIUM, SERUM 8.3 mg/dL (8.5-10.1); CREATININE 0.8 mg/dL (0.6-1.3); MAGNESIUM 1.9 mg/dL (1.8-2.4); PHOSPHORUS 3.3 mg/dL (2.5-4.9); POTASSIUM 3.7 mmol/L (3.5-5.1)
[2023-05-30] MEDS: BUMETANIDE INJ 4 MG in IV NS 0.9% 24 ML IV ONE (23:11)
[2023-05-30] MEDS: BUMETANIDE INJ 0.25 MG/ML VIAL ONE (23:18)
[2023-05-31] VITALS (83 sets, daily range): BP systolic 74–124; BP diastolic 48–83; TEMP 97.6–98; O2SAT 88–100
[2023-05-31 05:25] LABS: CALCIUM, SERUM 8.7 mg/dL (8.5-10.1); CREATININE 0.8 mg/dL (0.6-1.3); MAGNESIUM 1.8 mg/dL (1.8-2.4); PHOSPHORUS 3.5 mg/dL (2.5-4.9); POTASSIUM 3.5 mmol/L (3.5-5.1)
[2023-05-31] MEDS: IVERMECTIN 3 MG TABLET PO ONE (17:58)
[2023-06-01] VITALS (60 sets, daily range): BP systolic 82–128; BP diastolic 48–90; TEMP 97.9–98.7; O2SAT 95–100
[2023-06-01 04:48] LABS: BASOPHILS # (AUTO) 0.1 K/uL (0.0-0.2); BASOPHILS % (AUTO) 0.6 % (0.0-2.0); EOSINOPHILS # (AUTO) 1.6 K/uL (0.0-0.7); EOSINOPHILS % (AUTO) 13.4 % (0.0-6.0); HEMATOCRIT 35 % (39-51); HEMOGLOBIN 11.4 g/dL (13.5-17.5); LYMPHOCYTES # (AUTO) 1.5 K/uL (0.8-4.8); LYMPHOCYTES % (AUTO) 12.6 % (20.0-44.0); MEAN CORPUSCULAR HEMOGLOBIN 31 PG (26.0-33.0); MEAN CORPUSCULAR HGB CONC 33 g/dl (31.0-36.0); MEAN CORPUSCULAR VOLUME 94 fL (80-96); MONOCYTES # (AUTO) 0.6 K/uL (0.1-1.30); MONOCYTES % (AUTO) 5.5 % (2.0-12.0); NEUTROPHILS # (AUTO) 7.9 K/uL (1.8-8.9); NEUTROPHILS % (AUTO) 67.9 % (43.0-81.0); PLATELET COUNT (AUTO) 346 K/uL (150-450); RED BLOOD CELL COUNT(AUTO) 3.72 MIL/uL (4.5-6.0); RED CELL DISTRIBUTION WIDTH 15.2 % (11.5-15.0); WHITE BLOOD COUNT (AUTO) 11.7 K/uL (4.3-11.0)
[2023-06-01 05:08] LABS: CALCIUM, SERUM 8.4 mg/dL (8.5-10.1); CREATININE 0.7 mg/dL (0.6-1.3); MAGNESIUM 2.2 mg/dL (1.8-2.4); POTASSIUM 3.4 mmol/L (3.5-5.1)
[2023-06-01] MEDS: POTASSIUM CHLORIDE 20 MEQ TAB.PRT.SR PO ONE (08:48)
[2023-06-01] MEDS: POTASSIUM CHLORIDE 20 MEQ POWDER PACKET PO SCH (10:17)
[2023-06-01] MEDS: DOBUTamine 500 MG in IV D5W 210 ML IV PRN ×2 (10:46→11:34)
[2023-06-02] VITALS (11 sets, daily range): BP systolic 93–119; BP diastolic 56–72; TEMP 97.6–98.7; O2SAT 96–100
[2023-06-02 07:04] LABS: BASOPHILS % (AUTO) 0.5 % (0.0-2.0); EOSINOPHILS # (AUTO) 1.4 K/uL (0.0-0.7); HEMATOCRIT 34 % (39-51); HEMOGLOBIN 11.1 g/dL (13.5-17.5); LYMPHOCYTES # (AUTO) 1.3 K/uL (0.8-4.8); LYMPHOCYTES % (AUTO) 11.5 % (20.0-44.0); MEAN CORPUSCULAR HEMOGLOBIN 31 PG (26.0-33.0); MEAN CORPUSCULAR HGB CONC 33 g/dl (31.0-36.0); MEAN CORPUSCULAR VOLUME 94 fL (80-96); MONOCYTES # (AUTO) 0.6 K/uL (0.1-1.30); MONOCYTES % (AUTO) 5.9 % (2.0-12.0); NEUTROPHILS # (AUTO) 7.5 K/uL (1.8-8.9); NEUTROPHILS % (AUTO) 69.1 % (43.0-81.0); PLATELET COUNT (AUTO) 298 K/uL (150-450); RED BLOOD CELL COUNT(AUTO) 3.58 MIL/uL (4.5-6.0); RED CELL DISTRIBUTION WIDTH 15.4 % (11.5-15.0); WHITE BLOOD COUNT (AUTO) 10.9 K/uL (4.3-11.0)
[2023-06-02 07:08] LABS: CALCIUM, SERUM 8.5 mg/dL (8.5-10.1); CREATININE 0.7 mg/dL (0.6-1.3); MAGNESIUM 2.1 mg/dL (1.8-2.4); PHOSPHORUS 3.7 mg/dL (2.5-4.9); POTASSIUM 3.7 mmol/L (3.5-5.1)
[2023-06-03] VITALS (7 sets, daily range): BP systolic 95–120; BP diastolic 55–75; TEMP 97.5–98.5; O2SAT 96–98
[2023-06-03 07:07] LABS: BASOPHILS # (AUTO) 0.1 K/uL (0.0-0.2); BASOPHILS % (AUTO) 0.9 % (0.0-2.0); EOSINOPHILS # (AUTO) 1.2 K/uL (0.0-0.7); EOSINOPHILS % (AUTO) 13.4 % (0.0-6.0); HEMATOCRIT 34 % (39-51); HEMOGLOBIN 10.9 g/dL (13.5-17.5); LYMPHOCYTES # (AUTO) 1.1 K/uL (0.8-4.8); LYMPHOCYTES % (AUTO) 12.2 % (20.0-44.0); MEAN CORPUSCULAR HEMOGLOBIN 30 PG (26.0-33.0); MEAN CORPUSCULAR HGB CONC 33 g/dl (31.0-36.0); MEAN CORPUSCULAR VOLUME 93 fL (80-96); MONOCYTES # (AUTO) 0.5 K/uL (0.1-1.30); NEUTROPHILS % (AUTO) 67.5 % (43.0-81.0); PLATELET COUNT (AUTO) 314 K/uL (150-450); RED BLOOD CELL COUNT(AUTO) 3.61 MIL/uL (4.5-6.0); RED CELL DISTRIBUTION WIDTH 15.2 % (11.5-15.0); WHITE BLOOD COUNT (AUTO) 8.9 K/uL (4.3-11.0)
[2023-06-03 07:30] LABS: CALCIUM, SERUM 8.2 mg/dL (8.5-10.1); CREATININE 0.7 mg/dL (0.6-1.3); MAGNESIUM 2.1 mg/dL (1.8-2.4); PHOSPHORUS 3.6 mg/dL (2.5-4.9); POTASSIUM 3.7 mmol/L (3.5-5.1)
[2023-06-03] MEDS: GLUCERNA SHAKE 237 ML CAN PO SCH (12:00)
[2023-06-03] MEDS ORDERED: IV NS 0.9% 250 ML IV PRN (18:30)
[2023-06-04] VITALS (13 sets, daily range): BP systolic 93–129; BP diastolic 42–74; TEMP 97.5–98.1; O2SAT 96–99
[2023-06-04] MEDS: SPIRONOLACTONE 25 MG TABLET PO SCH (09:00)
[2023-06-05] VITALS (8 sets, daily range): BP systolic 110–125; BP diastolic 58–79; TEMP 97.5–98.7; O2SAT 94–98
[2023-06-06] VITALS: BP 107/69; TEMP 97.7; O2SAT 96
[2023-06-06 01:59] VITALS: O2SAT 96
[2023-06-06 04:00] VITALS: BP 107/63; TEMP 97.3; O2SAT 99
[2023-06-06 08:24] VITALS: BP 107/65
== END 2023-06-06 11:39 | DRG 291 ==
LOC: ER 22:08 → TELE 05-25 01:10 → MED 05-27 07:37 → ICU 05-29 18:18 → TELE-TD 06-01 14:54 → TELE1 06-04 07:56
PROVIDERS: ADMIT Nurse Practitioner Acute Care; ATTEND Nurse Practitioner Acute Care
PROC: 05HB33Z Insertion of Infusion Device into Right Basilic Vein, Percutaneous Approach (ICD-10-PCS; principal; 2023-05-25)
PROC: 0HBGXZX Excision of Left Hand Skin, External Approach, Diagnostic (ICD-10-PCS; 2023-05-26)
PROC: 0HBFXZX Excision of Right Hand Skin, External Approach, Diagnostic (ICD-10-PCS; 2023-05-26)
PROC: 02HV33Z Insertion of Infusion Device into Superior Vena Cava, Percutaneous Approach (ICD-10-PCS; 2023-05-30)
PROC: B548ZZA Ultrasonography of Superior Vena Cava, Guidance (ICD-10-PCS; 2023-05-30)
DX: I11.0 Hypertensive heart disease with heart failure (principal); I50.43 Acute on chronic combined systolic (congestive) and diastolic (congestive) heart failure; J96.10 Chronic respiratory failure, unspecified whether with hypoxia or hypercapnia; E44.0 Moderate protein-calorie malnutrition; I69.354 Hemiplegia and hemiparesis following cerebral infarction affecting left non-dominant side; E87.4 Mixed disorder of acid-base balance; J98.11 Atelectasis; N49.2 Inflammatory disorders of scrotum; I27.21 Secondary pulmonary arterial hypertension; I86.1 Scrotal varices; B86 Scabies; N43.3 Hydrocele, unspecified; E11.9 Type 2 diabetes mellitus without complications; D64.9 Anemia, unspecified; E78.5 Hyperlipidemia, unspecified; E83.51 Hypocalcemia; E86.1 Hypovolemia; E87.6 Hypokalemia; E88.09 Other disorders of plasma-protein metabolism, not elsewhere classified; F20.9 Schizophrenia, unspecified; G20.A1 Parkinson's disease without dyskinesia, without mention of fluctuations; G40.909 Epilepsy, unspecified, not intractable, without status epilepticus; I25.2 Old myocardial infarction; I34.0 Nonrheumatic mitral (valve) insufficiency; I42.9 Cardiomyopathy, unspecified; I48.91 Unspecified atrial fibrillation; J44.9 Chronic obstructive pulmonary disease, unspecified; K21.9 Gastro-esophageal reflux disease without esophagitis; R13.10 Dysphagia, unspecified; Z93.1 Gastrostomy status; Z93.0 Tracheostomy status; Z74.01 Bed confinement status; Z79.4 Long term (current) use of insulin; Z79.82 Long term (current) use of aspirin; Z79.84 Long term (current) use of oral hypoglycemic drugs; Z79.899 Other long term (current) drug therapy; Z87.891 Personal history of nicotine dependence; Z91.048 Other nonmedicinal substance allergy status; Z91.040 Latex allergy status
CPT/HCPCS: 31720; 36410; 36415; 36569; 71045-TC; 71250-TC; 76870-TC; 80048-TC; 80053-TC; 80202-TC; 81001; 82962-TC; 83605-TC; 83735-TC; 83880; 84100-TC; 84484-TC; 85025-TC; 87040-TC; 87081-TC; 92526; 92611-TC; 93307-TC; 93970-TC; 94640-TC; 94760-TC; 94762-TC; 94799-TC; A4216; A4223; A4623; G0378; J0696; J1120; J1250; J1650; J1815; J1940; J1953; J2270; J2543; J3370; J3490; J7030; J7050; J7060; P9047